=== PATIENT | male | born 1960 | race Caucasian/White ===

== ENCOUNTER 2021-07-28 06:27 | Observation (INO) | payer BC, OTHER ==
[2021-07-28] MEDS ORDERED: SODIUM CHLORIDE 0.9% 1,000 ML IV ONE ×2 (06:47→07:53)
--- NOTE | 2021-07-28 06:50 | ED ---
Chest Pain HPI - General Chief Complaint: Chest Pain Stated Complaint: Chest Pain Time Seen by Provider: 07/28/21 06:30 Source: patient, EMS, RN notes reviewed Mode of arrival: EMS Limitations: no limitations - History of Present Illness Initial Comments: This a 60-year-old male presents emergency Department with chief complaint of chest pain. Patient states that pain started a few hours ago has resolved at this time. Patient states he was more sharp pain in central to left-sided chest. Patient states that he is concerned and presented emergency from. Patient was offered nitro by EMS patient refused. Patient did receive aspirin. Patient has a history of hypertension no other cardiac issues. Patient denies any nausea vomiting diarrhea constipation no cough cold-like symptoms. - Related Data Allergies Allergy/AdvReac Type Severity Reaction Status Date / Time morphine AdvReac Vomiting Verified 07/28/21 06:50 Review of Systems ROS Statement: Those systems with pertinent positive or pertinent negative responses have been documented in the HPI. ROS Other: All systems not noted in ROS Statement are negative. Past Medical History History of Any Multi-Drug Resistant Organisms: None Reported Past Surgical History: Hernia Repair Additional Past Surgical History / Comment(s): cardiac cath 01/20 Smoking Status: Former smoker Past Alcohol Use History: Occasional Past Drug Use History: None Reported General Exam Limitations: no limitations General appearance: alert, in no apparent distress Head exam: Present: atraumatic, normocephalic, normal inspection Eye exam: Present: normal appearance, PERRL, EOMI. Absent: scleral icterus, conjunctival injection, periorbital swelling ENT exam: Present: normal exam, normal oropharynx, mucous membranes moist Neck exam: Present: normal inspection, full ROM. Absent: tenderness, meningismus, lymphadenopathy Respiratory exam: Present: normal lung sounds bilaterally. Absent: respiratory distress, wheezes, rales, rhonchi, stridor Cardiovascular Exam: Present: regular rate, normal rhythm, normal heart sounds. Absent: systolic murmur, diastolic murmur, rubs, gallop, clicks GI/Abdominal exam: Present: soft, normal bowel sounds. Absent: distended, tenderness, guarding, rebound, rigid Course Vital Signs 07/28/21 06:27 Temperature 97.9 F Pulse Rate 64 Respiratory 16 Rate Blood Pressure 89/59 O2 Sat by Pulse 92 L Oximetry Chest Pain MDM - MDM 60 male present emergency partner with chief complaint of chest pain patient is found to be acutely detoxicated with alcohol level 378 Patient's troponin is 0.017 patiently admitted for cardiac rule out. Disposition Clinical Impression: Chest pain, Alcohol intoxication Disposition: ADMITTED IP TO THIS HOSP Referrals: Nonstaff,Physician [REFERRING] - 1-2 days
[2021-07-28 07:12] LABS: Basophils # (A) 0.1 k/uL (0-0.2); Basophils % (A) 1 %; Eosinophils % (A) 1 %; HCT 51.5 % (39.0-53.0); HGB 16.8 gm/dL (13.0-17.5); Lymphocytes # (A) 1.5 k/uL (1.0-4.8); Lymphocytes % (A) 36 %; MCH 33.9 pg (25.0-35.0); MCHC 32.7 g/dL (31.0-37.0); MCV 103.7 fL (80.0-100.0); Macrocytosis Slight; Mean Platelet Volume 9.1; Monocytes # (A) 0.2 k/uL (0-1.0); Monocytes % (A) 5 %; Neutrophils # (A) 2.3 k/uL (1.3-7.7); Neutrophils % (A) 55 %; Platelet Count 167 k/uL (150-450); RBC 4.96 m/uL (4.30-5.90); RDW 13.5 % (11.5-15.5); WBC 4.1 k/uL (3.8-10.6)
[2021-07-28 07:28] LABS: ALT 126 U/L (4-49); AST 329 U/L (17-59); African American GFR (CKD) >90 (>60 ml/min/1.73 sqM); Albumin 4.3 g/dL (3.5-5.0); Alkaline Phosphatase 77 U/L (38-126); Anion Gap 21 mmol/L; Blood Urea Nitrogen 13 mg/dL (9-20); Calcium 8.8 mg/dL (8.4-10.2); Carbon Dioxide 18 mmol/L (22-30); Chloride 100 mmol/L (98-107); Glucose 76 mg/dL (74-99); Lipase 279 U/L (23-300); Magnesium 1.6 mg/dL (1.6-2.3); Non-African American GFR(CKD) 78 (>60 ml/min/1.73 sqM); Potassium 4.3 mmol/L (3.5-5.1); Sodium 139 mmol/L (137-145); Total Protein 6.9 g/dL (6.3-8.2)
[2021-07-28 07:32] LABS: Partial Thromboplastin Time 22.2 sec (22.0-30.0); Prothrombin Time 10.4 sec (9.0-12.0)
--- NOTE | 2021-07-28 07:35 | XR ---
EXAMINATION TYPE: XR chest 2V DATE OF EXAM: 07/28/2021 COMPARISON: NONE HISTORY: Shortness of breath TECHNIQUE: Frontal and lateral views of the chest are obtained. FINDINGS: Scattered senescent parenchymal changes noted. Hyperinflation compatible with COPD. No evidence for infiltrate. No evidence for atelectasis. Heart size is stable. Mediastinal structures are stable and grossly unremarkable. No evidence for hilar prominence. Degenerative changes dorsal spine. IMPRESSION: 1. No evidence for acute pulmonary disease.
[2021-07-28 07:43] LABS: Alcohol 378 mg/dL
[2021-07-28] MEDS ORDERED: NITROGLYCERIN SL TABS 0.4 MG TAB SUBLINGUAL PRN (08:13)
--- NOTE | 2021-07-28 09:48 | P.HPIM ---
History of Present Illness This is a pleasant [age]s old male with no significant past medical history. Presents because of chest pain He has remote history of necrotizing fasciitis of the left leg about 10 years ago as per patient Patient states that he came in because of chest pain that was severe so scared him to come to the hospital however the chest pain which is on the left side, nonradiating felt like sharp lasted for about 2-3 hours and currently his chest pain as a free compared to admission it was 7-8/10 in severity as per patient, he was lightheaded and sweating profusely, which is also resolved now as per patient. He denies dyspnea, no coughing. No abdominal pain or discomfort. No vomiting or diarrhea. Sometimes he feels some dysuria but currently his urine looks dark as per patient like he is dehydrated. He denies current dysuria or change in frequency. He denies headache or nausea. No dizziness. No weakness or numbness. No b lurred vision or slurred speech. Patient denies depression, no suicidal or homicidal ideation He denies smoking or illicit drugs. He states he drinks 3 beers every day and sometimes and liquor. However he was drinking too much over the weekend because of the [place]. In the emergency room patient received 2 L of normal saline and his blood pressure still 70s/40s Vital showing afebrile, heart rate 64, blood pressure 89/59, he is saturating 92% 2 L His CBC is unremarkable, INR is 1.0, BMP shows sodium 139, creatinine 1.0. Bilirubin is elevated at 2.0, AST 329, ALT 126 with AST more than ALT consistent with possible alcohol problem. Troponin 0.017. ProBNP is 23. Lipase normal at 279 Alcohol elevated at 378 In the emergency room. Started on aspirin 325 mg and normal saline Fleet Coordinator consulted Review of Systems CONSTITUTIONAL: No fever, no malaise, no fatigue. HEENT: No recent visual problems or hearing problems. Denied any sore throat. CARDIOVASCULAR: No orthopnea, PND, no palpitations, no syncope. PULMONARY: No shortness of breath, no cough, no hemoptysis. GASTROINTESTINAL: No diarrhea, no nausea, no vomiting, no abdominal pain. Normoactive bowel sounds. NEUROLOGICAL: No headaches, no weakness, no numbness. HEMATOLOGICAL: Denies any bleeding or petechiae. GENITOURINARY: Denies any burning micturition, frequency, or urgency. MUSCULOSKELETAL/RHEUMATOLOGICAL: Denies any joint pain, swelling, or any muscle pain. ENDOCRINE: Denies any polyuria or polydipsia. Past Medical History History of Any Multi-Drug Resistant Organisms: None Reported Past Surgical History: Hernia Repair Additional Past Surgical History / Comment(s): cardiac cath 01/20 Smoking Status: Former smoker Past Alcohol Use History: Occasional Past Drug Use History: None Reported Medications and Allergies Home Medications Medication Instructions Recorded Confirmed Type Escitalopram [Lexapro] 20 mg PO DAILY 07/28/21 07/28/21 History amLODIPine [Norvasc] 5 mg PO DAILY 07/28/21 07/28/21 History lisinopriL 40 mg PO DAILY 07/28/21 07/28/21 History Allergies Allergy/AdvReac Type Severity Reaction Status Date / Time morphine AdvReac Nausea & Verified 07/28/21 08:25 Vomiting Physical Exam Vitals: Vital Signs Temp Pulse Resp BP Pulse Ox 07/28/21 06:27 97.9 F 64 16 89/59 92 L Intake and Output 07/27/21 07/28/21 07/28/21 22:59 06:59 14:59 Other: Weight 104.326 kg GENERAL: The patient is alert and oriented x3, not in any acute distress. Well developed, well nourished. HEENT: Pupils are round and equally reacting to light. EOMI. No scleral icterus. No conjunctival pallor. Normocephalic, atraumatic. No pharyngeal erythema. No thyromegaly. CARDIOVASCULAR: S1 and S2 present. No murmurs, rubs, or gallops. PULMONARY: Chest is clear to auscultation, no wheezing or crackles. ABDOMEN: Soft, nontender, nondistended, normoactive bowel sounds. No palpable organomegaly. MUSCULOSKELETAL: No joint swelling or deformity. -EXTREMITIES: No cyanosis, clubbing, or pedal edema. Left leg is little warm and pinkish in color could be in view of his history of necrotizing fasciitis 10 years ago. NEUROLOGICAL: Gross neurological examination did not reveal any focal deficits. SKIN: No rashes. No petechiae Results CBC & Chem 7: 07/28/21 06:57 07/28/21 06:57 Labs: Abnormal Lab Results - Last 24 Hours (Table) 07/28/21 07/28/21 Range/Units 06:57 06:57 MCV 103.7 H (80.0-100.0) fL Carbon Dioxide 18 L (22-30) mmol/L Total Bilirubin 2.0 H (0.2-1.3) mg/dL AST 329 H (17-59) U/L ALT 126 H (4-49) U/L Serum Alcohol 378 H* mg/dL Assessment and Plan Assessment: Hypotension Chest pain, rule out cardiac causes. Currently is chest pain-free Alcohol intoxication at-risk of alcohol withdrawal Elevated liver enzymes and bilirubin, could be secondary to alcohol abuse. Rule out gallbladder disease mild redness of the left leg, not sure if this is acute or chronic Plan: This is a pleasant 60 his old male who presents with chest pain. Also alcohol abuse and elevated liver enzymes. Also mild redness of the left leg We'll do serial troponin, echocardiogram. Cardiology consult. Continue with aspirin. Gallbladder ultrasound, and monitor liver enzymes check Doppler of the lower extremity check d-dimer check lactic acid, repeat labs and monitor troponin check urine analysis and bladder scan Continue with CIWA protocol and thiamine. Patient is counseled to quit drinking alcohol and he agrees Labs and medication were reviewed.. Continue same treatment. Continue with symptomatic treatment. Resume home medication. Monitor lytes and vitals. DVT and GI prophylaxis. Further recommendations depends on the clinical course of the patient DVT prophylaxis: Subcutaneous heparin GI Prophylaxis: Pepcid PT/OT: Pending Prognosis is guarded
[2021-07-28] MEDS ORDERED: THIAMINE 100 MG in SODIUM CHLORIDE 0.9% 50 ML IVPB SCH (10:00)
[2021-07-28 10:14] LABS: Basophils % (A) 1 %; Eosinophils % (A) 1 %; HCT 50.8 % (39.0-53.0); HGB 16.3 gm/dL (13.0-17.5); Lymphocytes # (A) 0.9 k/uL (1.0-4.8); Lymphocytes % (A) 22 %; MCH 33.8 pg (25.0-35.0); MCHC 32.1 g/dL (31.0-37.0); MCV 105.2 fL (80.0-100.0); Macrocytosis Slight; Mean Platelet Volume 10.6; Monocytes # (A) 0.2 k/uL (0-1.0); Monocytes % (A) 4 %; Neutrophils % (A) 72 %; Platelet Count 157 k/uL (150-450); RBC 4.83 m/uL (4.30-5.90); RDW 13.5 % (11.5-15.5); WBC 4.2 k/uL (3.8-10.6)
--- NOTE | 2021-07-28 10:46 | US ---
EXAMINATION TYPE: US venous doppler duplex LE BI DATE OF EXAM: 07/28/2021 10:30 AM COMPARISON: NONE CLINICAL HISTORY: leg swelling. SIDE PERFORMED: Bilateral TECHNIQUE: The lower extremity deep venous system is examined utilizing real time linear array sonog gertrude with graded compression, doppler sonography and color-flow sonography. VESSELS IMAGED: Common Femoral Vein Deep Femoral Vein Greater Saphenous Vein * Femoral Vein Popliteal Vein Small Saphenous Vein * Proximal Calf Veins (* superficial vessels) Right Leg: Negative for DVT Left Leg: Negative for DVT IMPRESSION: No evidence for DVT.
--- NOTE | 2021-07-28 10:46 | US ---
EXAMINATION TYPE: US liver DATE OF EXAM: 07/28/2021 COMPARISON: NONE CLINICAL HISTORY: High bilirubin. EXAM MEASUREMENTS: Liver Length: 21.3 cm Gallbladder Wall: 0.1 cm CBD: 0.4 cm Right Kidney: 13.9x6.8x7.5 cm Pancreas: Not seen due to bowel Liver: Increased attenuation, decreased visualization of vessels suggestive of fatty infiltrate Gallbladder: Large amount of sludge Evidence for sonographic Encarnacion's sign: No CBD: wnl Right Kidney: Mid cyst 1.2x1.1x0.9cm IMPRESSION: #1 gallbladder sludge. 2. Hepatic steatosis.
[2021-07-28 11:04] LABS: ALT 126 U/L (4-49); AST 375 U/L (17-59); African American GFR (CKD) 78 (>60 ml/min/1.73 sqM); Albumin 4.3 g/dL (3.5-5.0); Albumin/Globulin Ratio 1.7; Alkaline Phosphatase 82 U/L (38-126); Anion Gap 21 mmol/L; Bilirubin,Unconjugated 0.9 mg/dL (0.0-1.1); Blood Urea Nitrogen 14 mg/dL (9-20); Calcium 8.5 mg/dL (8.4-10.2); Carbon Dioxide 17 mmol/L (22-30); Chloride 102 mmol/L (98-107); Globulin 2.6 g/dL; Glucose 76 mg/dL (74-99); Magnesium 1.6 mg/dL (1.6-2.3); Non-African American GFR(CKD) 68 (>60 ml/min/1.73 sqM); Potassium 4.6 mmol/L (3.5-5.1); Sodium 140 mmol/L (137-145); Total Protein 6.9 g/dL (6.3-8.2)
[2021-07-28 11:30] VITALS: RESP 18
[2021-07-28] MEDS ORDERED: LORazepam 2 MG/ML INJ IV PRN ×2 (12:29)
[2021-07-28] MEDS: SODIUM CHLORIDE 0.9% 1,000 ML IV SCH ×2 (12:45→16:52)
[2021-07-28] MEDS ORDERED: ALPRAZolam 0.5 MG TAB PO STA (12:47)
[2021-07-28] MEDS: THIAMINE 100 MG TAB PO SCH ×2 (13:03→17:58)
[2021-07-28] MEDS: HEPARIN SODIUM,PORCINE/PF 5,000 UNIT/0.5 ML SYRINGE SQ SCH ×2 (13:05→15:14)
[2021-07-28] MEDS ORDERED: bisacodyL 10 MG SUPP RECTAL STA (14:03)
[2021-07-28] MEDS ORDERED: DOCUSATE 100 MG CAP PO PRN (14:03)
[2021-07-28 14:53] LABS: Appearance,Urine Clear (Clear); Bacteria,Urine Rare /hpf; Bilirubin,Urine Negative (Negative); Blood,Urine Negative (Negative); Color,Urine Yellow; Glucose,Urine (UA) Negative (Negative); Hyaline Casts,Urine 12 /lpf (0-2); Ketones,Urine 2+ (Negative); Leukocyte Esterase,Urine Negative (Negative); Mucus,Urine Rare /hpf; Nitrite,Urine Negative (Negative); PH, Urine 5.5 (5.0-8.0); Protein,Urine 1+ (Negative); Specific Gravity,Urine 1.017 (1.001-1.035); Squamous Epithelial Cell,Urine <1 /hpf (0-4); WBC,Urine 5 /hpf (0-5)
[2021-07-28] MEDS ORDERED: SODIUM CHLORIDE 0.9% 500 ML 500 ML IV ONE ×2 (14:58→18:14)
--- NOTE | 2021-07-28 16:07 | P.CNPUL ---
History of Present Illness Consult date: 07/28/21 Requesting physician: Jose Maldonado Reason for consult: chest pain Chief complaint: Pleuritic chest pain History of present illness: This is 60-year-old white male patient with past medical history of hypertension, remote history of smoking, in remission for 30 some years, no history of chronic lung disease, previous history of hernia repair, came into the emergency department on 07/28/2021 with complaints of pleuritic chest pain that started a few hours prior to his presentation. It was sharp in nature, worse with movement and deep breathing. It resolved shortly after his arrival to the emergency department, patient states that was more central to left-sided. He had some mild diaphoresis. No shortness of breath. Has history of hypertension no other cardiac issues. He states a few years back he had a cardiac catheter was told the results were normal. He states over the holidays she overindulged in alcohol and probably had around 20 drinks over the last few days. Normally drinks 2 beers on a daily basis. He denies any recent trauma. No fever or chills. No recent illness. 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 He has been under a lot of stress. Chest x-ray in the emergency department showed no evidence for acute pulmonary disease. EKG showed normal sinus rhythm with evidence of inferior infarct of undetermined age. His initial blood work showed a white blood cell count of 4.1, hemoglobin of 16.8, INR of 1.0, sodium is 139, potassium is 4.3, chloride is 100, CO2 was 18, anion gap was 21, B1 is twitchy creatinine 1.05, lactic acid was elevated at 3.9, and subsequently did further increased to 5.8, magnesium level I.6, AST was 329, ALT was 126, alkaline phosphatase was 77, 3 sets of troponins were negative at 0.017, 0.012, and 0.015. His lipase was negative at 279, urinalysis showed 1+ protein, 2+ ketones, rare bacteria, no definite evidence of infection, serum alcohol level was elevated at 378, COVID-19 PCR was negative. Liver ultrasound has been completed showing gallbladder sludge, and hepatic steatosis. Lower extremity Dopplers were checked and were negative for DVT. Currently he is resting comfortably in bed, he was fluid resuscitated and was given a total of 2-1/2 L of fluid boluses, and he is receiving 0.9 normal saline at a rate of 1:30 ML per hour, he was started on CIWA protocol, he is breathing comfortably, he denies any chest pain. Her pulse ox is 94-95%, his lung sounds are clear Review of Systems All systems: negative Constitutional: Denies chills, Denies fever Eyes: denies blurred vision, denies pain Ears, nose, mouth and throat: Denies headache, Denies sore throat Cardiovascular: Reports chest pain, Reports edema, Denies shortness of breath Respiratory: Reports dyspnea, Denies cough Gastrointestinal: Denies abdominal pain, Denies diarrhea, Denies nausea, Denies vomiting Musculoskeletal: Denies myalgias Integumentary: Denies pruritus, Denies rash Neurological: Denies numbness, Denies weakness Psychiatric: Denies anxiety, Denies depression Endocrine: Denies fatigue, Denies weight change Past Medical History Past Medical History: Hypertension, Osteoarthritis (OA) Additional Past Medical History / Comment(s): Pt states bitten by brown recluse spider/necrotizing fascitis/ L lower leg/with extended hospitalization, benign colon polyps removed, arthritis bilateral knees/chronic bilateral knee pain. History of Any Multi-Drug Resistant Organisms: None Reported Past Surgical History: Hernia Repair Additional Past Surgical History / Comment(s): cardiac cath 01/20 Past Anesthesia/Blood Transfusion Reactions: No Reported Reaction Smoking Status: Former smoker Past Alcohol Use History: Occasional Past Drug Use History: None Reported - Past Family History Father Family Medical History: Cancer Additional Family Medical History / Comment(s): Father of colorectal cancer Brother(s) Family Medical History: Cancer Additional Family Medical History / Comment(s): Brother survived colorectal cancer. Mother Family Medical History: No Reported History Additional Family Medical History / Comment(s): Mother was healthy. Medications and Allergies Home Medications Medication Instructions Recorded Confirmed Type Escitalopram [Lexapro] 20 mg PO DAILY 07/28/21 07/28/21 History amLODIPine [Norvasc] 5 mg PO DAILY 07/28/21 07/28/21 History lisinopriL 40 mg PO DAILY 07/28/21 07/28/21 History Allergies Allergy/AdvReac Type Severity Reaction Status Date / Time morphine AdvReac Nausea & Verified 07/28/21 08:25 Vomiting Physical Exam Vitals: Vital Signs Temp Pulse Pulse Resp BP BP Pulse Ox 07/28/21 14:25 97.6 F 94 18 124/84 94 L 07/28/21 13:00 97.4 F L 82 18 93/56 95 07/28/21 11:29 77 18 106/66 97 07/28/21 09:27 97.3 F L 78 19 98/64 97 07/28/21 06:27 97.9 F 64 16 89/59 92 L Intake and Output 07/28/21 07/28/21 07/28/21 06:59 14:59 22:59 Intake Total 120 500 Balance 120 500 Intake: IV 500 Sodium Chloride 0.9% 500 500 ml 500 ml @ 999 mls/hr IV .Q31M ONE Rx#:[id number] Oral 120 Other: Voiding Method Toilet # Voids 1 1 # Bowel Movements 2 2 Weight 104.326 kg 104.326 kg GENERAL EXAM: Alert, very pleasant, 60-year-old white male, on room air with a pulse ox of 95%, comfortable in no apparent distress. HEAD: Normocephalic/atraumatic. EYES: Normal reaction of pupils, equal size. Conjunctiva pink, sclera white. NOSE: Clear with pink turbinates. THROAT: No erythema or exudates. NECK: No masses, no JVD, no thyroid enlargement, no adenopathy. CHEST: No chest wall deformity. Symmetrical expansion. LUNGS: Equal air entry with no crackles, wheeze, rhonchi or dullness. CVS: Regular rate and rhythm, normal S1 and S2, no gallops, no murmurs, no rubs ABDOMEN: Abdomen soft, nontender, obese. No hepatosplenomegaly, normal bowel sounds, no guarding or rigidity. EXTREMITIES: No clubbing, no edema, no cyanosis, 2+ pulses and upper and lower extremities. MUSCULOSKELETAL: Muscle strength and tone normal. SPINE: No scoliosis or deformity SKIN: No rashes CENTRAL NERVOUS SYSTEM: Alert and oriented -3. No focal deficits, tone is normal in all 4 extremities. PSYCHIATRIC: Alert and oriented -3. Appropriate affect. Intact judgment and insight. Results - Laboratory Findings CBC and BMP: 07/28/21 09:54 07/28/21 10:41 PT/INR, D-dimer PT 10.4 sec (9.0-12.0) 07/28/21 06:57 INR 1.0 (<1.2) 07/28/21 06:57 Abnormal lab findings: Abnormal Labs 07/28/21 07/28/21 07/28/21 06:57 06:57 09:54 MCV 103.7 H 105.2 H Lymphocytes # 0.9 L Carbon Dioxide 18 L Plasma Lactic Acid Lenin Total Bilirubin 2.0 H AST 329 H ALT 126 H Urine Protein Urine Ketones Urine Bacteria Hyaline Casts Urine Mucus Serum Alcohol 378 H* 07/28/21 07/28/21 07/28/21 09:54 10:41 12:50 MCV Lymphocytes # Carbon Dioxide 17 L Plasma Lactic Acid Lenin 3.9 H* 5.8 H* Total Bilirubin 2.0 H AST 375 H ALT 126 H Urine Protein Urine Ketones Urine Bacteria Hyaline Casts Urine Mucus Serum Alcohol 07/28/21 14:17 MCV Lymphocytes # Carbon Dioxide Plasma Lactic Acid Lenin Total Bilirubin AST ALT Urine Protein 1+ H Urine Ketones 2+ H Urine Bacteria Rare H Hyaline Casts 12 H Urine Mucus Rare H Serum Alcohol - Diagnostic Findings Chest x-ray: report reviewed, image reviewed Additional studies: Liver ultrasound, venous Doppler studies, EKG reviewed Assessment and Plan Plan: Assessment: #1. Pleuritic chest pain, rule out possibility of underlying pulmonary embolism, CT angiogram of the chest has been ordered and pending. Lower extremity Dopplers were negative for DVT. 3 sets of troponins were negative #2. Acute alcohol intoxication on presentation, and alcohol level was 378 #3. Daily alcohol use #4. Lactic acidosis, possibly related to dehydration, rule out possibility of patient has been fluid resuscitated and remains on 0.9 at a rate of 130 ML per hour #5. Anion gap metabolic acidosis, related to lactic acidosis, and alcoholic starvation ketosis #6. Gallbladder sludge and hepatic steatosis #7. Hypertension #8. Remote history of smoking Plan: We will obtain CT angiogram of the chest to rule out possibility of PE Continue IV hydration Continue CIWA protocol, thiamine replacement GI and DVT prophylaxis Maintaining safety precautions We'll continue to follow Patient is breathing comfortably, Vital signs are stable Chest pain has resolved Lower extremity dopplers reviewed showing no DVT Will review results of the CTA chest, and make further recommendations I performed a history & physical examination of the patient and discussed their management with my nurse practitioner, Yolanda Perkins. I reviewed the nurse practitioner's note and agree with the documented findings and plan of care. Lung sounds are positive for diminished breath sounds throughout the lung rudolph. The findings and the impression was discussed with the patient. I attest to the documentation by the nurse practitioner. Time with Patient: Greater than 30
[2021-07-28] MEDS: LORazepam 2 MG/ML INJ IV PRN ×2 (18:12→21:48)
[2021-07-28] MEDS: FAMOTIDINE 20 MG/2 ML VIAL IV SCH (21:06)
[2021-07-29] MEDS: HEPARIN SODIUM,PORCINE/PF 5,000 UNIT/0.5 ML SYRINGE SQ SCH ×2 (01:06→09:52)
[2021-07-29] MEDS: SODIUM CHLORIDE 0.9% 1,000 ML IV SCH ×2 (05:51→14:04)
[2021-07-29 08:00] VITALS: BP 116/66; PULSE 78; TEMP 99.3
--- NOTE | 2021-07-29 08:56 | P.GSCN ---
History of Present Illness Consult date: 07/28/21 History of present illness: CHIEF COMPLAINT: Abnormal ultrasound HISTORY OF PRESENT ILLNESS: The patient is a 60 year old male who presented with acute alcohol intoxication as well as chest pain. He presented with elevated lactic acid level and elevated alcohol level. He was evaluated for chest pain. Ultrasound was also obtained for elevated liver enzymes. Due to findings on ultrasound, general surgery is consulted for gallbladder sludge. PAST MEDICAL HISTORY: See list and reviewed PAST SURGICAL HISTORY: See list and reviewed MEDICATIONS: See list and reviewed ALLERGIES: See list and reviewed SOCIAL HISTORY: See list and reviewed FAMILY HISTORY: See list and reviewed REVIEW OF ORGAN SYSTEMS: CONSTITUTIONAL: No fevers or chills. No recent weight loss. EYES: Denies any trouble with vision. No glasses. HEENT: No difficulties with hearing. No nosebleeds. No difficulty swallowing. RESPIRATORY: Denies pneumonia. Denies any troubles with breathing or dyspnea on exertion. CARDIOVASCULAR: Has chest pain, palpitations, or recent heart attacks. GASTROINTESTINAL: Denies fatty food intolerance. Denies change in bowel habits and gas bloat. GENITOURINARY: Denies any blood in urine or increased urinary frequency. NEUROLOGICAL: Denies any numbness or tingling along the distal extremities. No seizure disorders or headaches. MUSCULOSKELETAL: Denies any back pain, stiffness or joint arthritis. SKIN: No current skin cancer. No rash. PSYCHIATRIC: Denies current depression or suicidal thoughts. ENDOCRINE: Denies current thyroid disorders. Denies any blood sugar glucose intolerance. HEME/LYMPHATIC: Denies any lumps and bumps around the neck. No recent deep venous thrombosis. ALLERGY/IMMUNOLOGY: No immunoglobulin therapy. No immune deficiencies. BREAST: Denies current breast lumps, pain or nipple discharge. PHYSICAL EXAM: VITALS: Reviewed CONSTITUTIONAL: Well developed and in no acute distress. EYES: Conjuctivae without sclera icterus. Extraocular movements grossly intact. HEAD, EARS, NOSE, THROAT: Moist buccal mucosa. Head is atraumatic, normocephalic. Hears conversational speech. No nasal drainage. NECK: Supple. No JV distention. No thyroidomegaly. RESPIRATORY: Non-labored respirations and equal bilateral excursions. No gross wheezes. CARDIOVASCULAR: 2+ radial pulses. ABDOMEN: Nontender. Nondistended. LYMPH: No neck lymphadenopathy. MUSCULOSKELETAL: Nail and fingers with good capillary refill. SKIN: Warm and well perfused with good skin turgor. NEUROLOGIC: Cranial nerves II through XII grossly intact. No focal or lateralizing signs. PSYCH: Appropriate affect. Alert and oriented to person, place and time. Displays appropriate insight. CLINCAL LABS: Reviewed. LFTs elevated IMAGING: Independently reviewed. RADIOLOGY: Report reviewed ASSESSMENT: 1. Abnormal ultrasound with gallbladder sludge 2. Alcoholism PLAN: 1. Recommend IV fluid hydration. Denies any abdominal pain. 2. No acute surgical intervention at this time with acute alcoholism. ADVANCE DIRECTIVE: Thank you for this kind consultation. Past Medical History Past Medical History: Hypertension, Osteoarthritis (OA) Additional Past Medical History / Comment(s): Pt states bitten by brown recluse spider/necrotizing fascitis/ L lower leg/with extended hospitalization, benign colon polyps removed, arthritis bilateral knees/chronic bilateral knee pain. History of Any Multi-Drug Resistant Organisms: None Reported Past Surgical History: Hernia Repair Additional Past Surgical History / Comment(s): cardiac cath 01/20 Past Anesthesia/Blood Transfusion Reactions: No Reported Reaction Smoking Status: Former smoker Past Alcohol Use History: Occasional Past Drug Use History: None Reported - Past Family History Father Family Medical History: Cancer Additional Family Medical History / Comment(s): Father of colorectal cancer Brother(s) Family Medical History: Cancer Additional Family Medical History / Comment(s): Brother survived colorectal cancer. Mother Family Medical History: No Reported History Additional Family Medical History / Comment(s): Mother was healthy. Medications and Allergies Home Medications Medication Instructions Recorded Confirmed Type Escitalopram [Lexapro] 20 mg PO DAILY 07/28/21 07/28/21 History amLODIPine [Norvasc] 5 mg PO DAILY 07/28/21 07/28/21 History lisinopriL 40 mg PO DAILY 07/28/21 07/28/21 History Allergies Allergy/AdvReac Type Severity Reaction Status Date / Time morphine AdvReac Nausea & Verified 07/28/21 08:25 Vomiting Surgical - Exam Vital Signs Temp Pulse Resp BP Pulse Ox 97.9 F 64 16 89/59 92 L 07/28/21 06:27 07/28/21 06:27 07/28/21 06:27 07/28/21 06:27 07/28/21 06:27 Results - Labs 07/28/21 09:54 07/28/21 10:41 Abnormal Lab Results - Last 24 Hours (Table) 07/28/21 07/28/21 07/28/21 Range/Units 06:57 06:57 09:54 MCV 103.7 H 105.2 H (80.0-100.0) fL Lymphocytes # 0.9 L (1.0-4.8) k/uL Carbon Dioxide 18 L (22-30) mmol/L Plasma Lactic Acid Lenin (0.7-2.0) mmol/L Total Bilirubin 2.0 H (0.2-1.3) mg/dL AST 329 H (17-59) U/L ALT 126 H (4-49) U/L Procalcitonin (0.02-0.09) ng/mL Urine Protein (Negative) Urine Ketones (Negative) Urine Bacteria (None) /hpf Hyaline Casts (0-2) /lpf Urine Mucus (None) /hpf Serum Alcohol 378 H* mg/dL 07/28/21 07/28/21 07/28/21 Range/Units 09:54 10:41 10:41 MCV (80.0-100.0) fL Lymphocytes # (1.0-4.8) k/uL Carbon Dioxide 17 L (22-30) mmol/L Plasma Lactic Acid Lenin 3.9 H* (0.7-2.0) mmol/L Total Bilirubin 2.0 H (0.2-1.3) mg/dL AST 375 H (17-59) U/L ALT 126 H (4-49) U/L Procalcitonin 0.13 H (0.02-0.09) ng/mL Urine Protein (Negative) Urine Ketones (Negative) Urine Bacteria (None) /hpf Hyaline Casts (0-2) /lpf Urine Mucus (None) /hpf Serum Alcohol mg/dL 07/28/21 07/28/21 07/28/21 Range/Units 12:50 14:17 16:06 MCV (80.0-100.0) fL Lymphocytes # (1.0-4.8) k/uL Carbon Dioxide (22-30) mmol/L Plasma Lactic Acid Lenin 5.8 H* 5.6 H* (0.7-2.0) mmol/L Total Bilirubin (0.2-1.3) mg/dL AST (17-59) U/L ALT (4-49) U/L Procalcitonin (0.02-0.09) ng/mL Urine Protein 1+ H (Negative) Urine Ketones 2+ H (Negative) Urine Bacteria Rare H (None) /hpf Hyaline Casts 12 H (0-2) /lpf Urine Mucus Rare H (None) /hpf Serum Alcohol mg/dL 07/28/21 Range/Units 19:08 MCV (80.0-100.0) fL Lymphocytes # (1.0-4.8) k/uL Carbon Dioxide (22-30) mmol/L Plasma Lactic Acid Lenin 3.5 H* (0.7-2.0) mmol/L Total Bilirubin (0.2-1.3) mg/dL AST (17-59) U/L ALT (4-49) U/L Procalcitonin (0.02-0.09) ng/mL Urine Protein (Negative) Urine Ketones (Negative) Urine Bacteria (None) /hpf Hyaline Casts (0-2) /lpf Urine Mucus (None) /hpf Serum Alcohol mg/dL Diabetes panel 07/28/21 07/28/21 Range/Units 06:57 10:41 Sodium 139 140 (137-145) mmol/L Potassium 4.3 4.6 (3.5-5.1) mmol/L Chloride 100 102 (98-107) mmol/L Carbon Dioxide 18 L 17 L (22-30) mmol/L BUN 13 14 (9-20) mg/dL Creatinine 1.05 1.17 (0.66-1.25) mg/dL Glucose 76 76 (74-99) mg/dL Calcium 8.8 8.5 (8.4-10.2) mg/dL AST 329 H 375 H (17-59) U/L ALT 126 H 126 H (4-49) U/L Alkaline Phosphatase 77 82 (38-126) U/L Total Protein 6.9 6.9 (6.3-8.2) g/dL Albumin 4.3 4.3 (3.5-5.0) g/dL Calcium panel 07/28/21 07/28/21 Range/Units 06:57 10:41 Calcium 8.8 8.5 (8.4-10.2) mg/dL Albumin 4.3 4.3 (3.5-5.0) g/dL Pituitary panel 07/28/21 07/28/21 Range/Units 06:57 10:41 Sodium 139 140 (137-145) mmol/L Potassium 4.3 4.6 (3.5-5.1) mmol/L Chloride 100 102 (98-107) mmol/L Carbon Dioxide 18 L 17 L (22-30) mmol/L BUN 13 14 (9-20) mg/dL Creatinine 1.05 1.17 (0.66-1.25) mg/dL Glucose 76 76 (74-99) mg/dL Calcium 8.8 8.5 (8.4-10.2) mg/dL Adrenal panel 07/28/21 07/28/21 Range/Units 06:57 10:41 Sodium 139 140 (137-145) mmol/L Potassium 4.3 4.6 (3.5-5.1) mmol/L Chloride 100 102 (98-107) mmol/L Carbon Dioxide 18 L 17 L (22-30) mmol/L BUN 13 14 (9-20) mg/dL Creatinine 1.05 1.17 (0.66-1.25) mg/dL Glucose 76 76 (74-99) mg/dL Calcium 8.8 8.5 (8.4-10.2) mg/dL Total Bilirubin 2.0 H 2.0 H (0.2-1.3) mg/dL AST 329 H 375 H (17-59) U/L ALT 126 H 126 H (4-49) U/L Alkaline Phosphatase 77 82 (38-126) U/L Total Protein 6.9 6.9 (6.3-8.2) g/dL Albumin 4.3 4.3 (3.5-5.0) g/dL
[2021-07-29] MEDS ORDERED: ASPIRIN 325 MG TAB PO SCH (09:00)
[2021-07-29] MEDS ORDERED: LORazepam 2 MG/ML INJ IV STA (09:50)
[2021-07-29] MEDS: THIAMINE 100 MG TAB PO SCH (09:52)
[2021-07-29] MEDS: FAMOTIDINE 20 MG/2 ML VIAL IV SCH (09:52)
[2021-07-29 10:44] LABS: Basophils % (A) 1 %; Eosinophils % (A) 1 %; HCT 43.2 % (39.0-53.0); HGB 13.8 gm/dL (13.0-17.5); Lymphocytes # (A) 0.9 k/uL (1.0-4.8); Lymphocytes % (A) 30 %; MCH 33.1 pg (25.0-35.0); MCHC 32.1 g/dL (31.0-37.0); MCV 103.2 fL (80.0-100.0); Macrocytosis Slight; Mean Platelet Volume 10.6; Monocytes # (A) 0.2 k/uL (0-1.0); Monocytes % (A) 6 %; Neutrophils # (A) 1.8 k/uL (1.3-7.7); Neutrophils % (A) 61 %; Platelet Count 129 k/uL (150-450); RBC 4.18 m/uL (4.30-5.90); RDW 13.4 % (11.5-15.5)
[2021-07-29 10:49] LABS: ALT 110 U/L (4-49); AST 268 U/L (17-59); African American GFR (CKD) >90 (>60 ml/min/1.73 sqM); Albumin 3.3 g/dL (3.5-5.0); Albumin/Globulin Ratio 1.5; Alkaline Phosphatase 60 U/L (38-126); Anion Gap 8 mmol/L; Blood Urea Nitrogen 14 mg/dL (9-20); Carbon Dioxide 23 mmol/L (22-30); Chloride 102 mmol/L (98-107); Globulin 2.2 g/dL; Glucose 107 mg/dL (74-99); Non-African American GFR(CKD) >90 (>60 ml/min/1.73 sqM); Potassium 3.9 mmol/L (3.5-5.1); Sodium 133 mmol/L (137-145); Total Bilirubin 1.8 mg/dL (0.2-1.3); Total Protein 5.5 g/dL (6.3-8.2)
[2021-07-29 11:00] LABS: Chol/HDL Ratio 2.15 Ratio; VLDL Calculation 12.38 mg/dL (5.00-40.00)
--- NOTE | 2021-07-29 11:14 | CT ---
EXAMINATION TYPE: CT chest angio for PE DATE OF EXAM: 07/29/2021 COMPARISON: None HISTORY: Elevated d-dimer CONTRAST: CT chest with contrast and 3D reconstruction with MIP imaging is performed with IV Contrast, patient injected with 100 mL of Isovue 300. Contrast-enhanced CT of the chest was performed through the course of the pulmonary arteries with isis g and mediastinal window settings submitted. 3D reconstruction with MIP imaging was also performed. PULMONARY ARTERIES: The pulmonary arteries and their major tributaries are patent. I do not see palmira dence for sizable filling defect to suggest pulmonary embolic process. LUNGS: The lungs are clear and free of infiltrate. No evidence for atelectasis. No pulmonary nodule or mass is detected. No pleural effusion. MEDIASTINUM: Ascending thoracic aortic aneurysm measuring 4.5 cm in AP dimension. The heart is mildly enlarged. No evidence for mediastinal mass. No mediastinal lymph nodes greater than 1cm. Incidenta l nonspecific right-sided Thyroid nodules. HILAR STRUCTURES: No evidence for mass. No hilar lymph nodes greater than 1 cm. UPPER ABDOMEN: Hepatic steatosis IMPRESSION: 1. No evidence for Pulmonary embolism at this time.
--- NOTE | 2021-07-29 12:00 | CONS ---
CONSULTATION Bahman Haley is a 60-year-old obese gentleman with history of hypertension, hypercholesterolemia, alcoholism. He also has some anxiety disorder as well. This gentleman is under a lot of stress and apparently his is not doing well. She is being considered for hospice and he has a lot of issues. He drank alcohol excessively, came in intoxicated with alcohol level of about 378 yesterday. However, this morning he is more sober, resting comfortably. His electrolytes have been normal. His lactic acid level also has improved. He has no chest pain or shortness of breath. Yesterday he complained of some chest tightness and pressure, but this has resolved. He also has an elevated D-dimer of 2.17. However, the venous Doppler that was performed yesterday did not reveal any evidence of DVT. He is resting comfortably without symptoms. About 3 months ago he had a cardiac cath through the [facility] and this was unremarkable with no evidence of obstructive CAD, per patient. PAST MEDICAL HISTORY: 1. Hypertension. 2. Hyperlipidemia. 3. Past history of smoking. 4. History of unremarkable cardiac cath 3 months ago per patient. MEDICATIONS: Medications at home include amlodipine, lisinopril, multivitamins and Lexapro 20 mg daily. ALLERGIES: MORPHINE. PHYSICAL EXAMINATION: On examination, blood pressure is 118/70, pulse rate 78 per minute, regular. HEENT unremarkable. Fundus was not examined by me. Neck is supple. No JVD. I do not hear a carotid bruit. There is no thyromegaly. Heart exam reveals S1, S2, but heart sounds are heard distantly. There is a short systolic murmur at the left sternal border. Lungs reveal decent air entry. Abdomen is soft, nontender, distended. Lower extremities reveal diminished pulses, trace edema. Central nervous system is normal. IMPRESSION: 1. Atypical chest pain. 2. Abnormal D-dimer. 3. Obesity. 4. Hypertension. 5. Hyperlipidemia. 6. History of alcoholism. He came in intoxicated, but this has resolved. RECOMMENDATIONS: Given the elevated D-dimer, I am recommending that we will continue his hydration and proceed with a CT angiogram to rule out any pulmonary embolism. DVT, however, was negative. His blood pressure control seems to be optimal. 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 I have discussed my thoughts in detail with the patient. We will perform a CT angiogram, and if this is normal he can be discharged. Thank you very much for the consult. TOM / KURT: [id number] /
--- NOTE | 2021-07-29 14:56 | HP ---
HISTORY AND PHYSICAL COMBINED HISTORY AND PHYSICAL AND DISCHARGE SUMMARY: DATE OF SERVICE: 07/29/2021 CHIEF COMPLAINT: Chest pain. HISTORY OF PRESENT ILLNESS: This 60-year-old gentleman with a past medical history of hypertension, history of DJD, history of hernia repair, history of recent cardiac cath which was negative, anxiety, history of EtOH, being followed by Dr. Gonzalez in the outpatient setting, was admitted with acute alcohol intoxication as well as chest pain. The pain was in the middle of the chest. The patient was evaluated by Cardiology. The troponins are negative. D- dimer was elevated. CT angio chest was also negative and the patient is being discharged per Cardiology. There is no history of any fever, rigors or chills. No history of headache, loss of consciousness, seizures at this time. LFTs are elevated, indicating acute alcoholic hepatitis. Otherwise, procalcitonin is 0.13 and COVID-19 was negative. Alcohol was 378 on admission. PAST MEDICAL HISTORY: History of DJD, history of hypertension, history of hernia repair. MEDICATIONS PRIOR TO ADMISSION: None. ALLERGIES: MORPHINE. FAMILY HISTORY: History of colorectal cancer in the family. SOCIAL HISTORY: Previous history of smoking. History of alcohol intake occasionally, according to him. 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 REVIEW OF SYSTEMS: ENT: No diminished hearing. No diminished vision. CARDIOVASCULAR SYSTEM: As mentioned earlier. RESPIRATORY SYSTEM: As mentioned earlier. GI: No nausea, vomiting, diarrhea. : No dysuria. NERVOUS SYSTEM: No numbness, weakness. ALLERGY/IMMUNOLOGY: No asthma or hay fever. MUSCULOSKELETAL: As mentioned earlier. HEMATOLOGY/ONCOLOGY: No history of anemia. ENDOCRINE: No history of diabetes or hypothyroidism. CONSTITUTIONAL: As mentioned earlier. DERMATOLOGY: Negative. RHEUMATOLOGY: Negative. PSYCHIATRY: As mentioned earlier. PHYSICAL EXAMINATION: Patient alert and oriented x3. Pulse 78, blood pressure 116/66, respiration 18, temperature 99.3, pulse ox 93% on room air. HEENT: Conjunctivae normal. NECK: No jugular venous distention. CARDIOVASCULAR: S1, S2 muffled. RESPIRATION: Breath sounds diminished at the bases. No rhonchi. No crackles. ABDOMEN: Soft, nontender. No mass palpable. LEGS: No edema. No swelling. NERVOUS SYSTEM: Higher functions as mentioned earlier. Moves all 4 limbs. No focal motor or sensory deficit. LYMPHATICS: No lymph node palpable in neck, axillae or groin. SKIN: No ulcer, rash, bleeding. JOINTS: No active deforming arthropathy. LABS: WBC 3, hemoglobin 13.8, MCV is 103.2. D-dimer is 2.17. Sodium 133 and lactic acid 1.2. ASSESSMENT: 1. Acute alcohol intoxication, present on admission. 2. Chest pain, possibly musculoskeletal, nonspecific. 3. History of recent negative cardiac catheterization. 4. Elevated D-dimer, probably secondary to dehydration without any evidence of pulmonary embolism. 5. Elevated bilirubin, AST, ALT; alcoholic hepatitis. 6. History of degenerative joint disease. 7. History of hernia repair. 8. Hypertension. 9. History of anxiety. 10.History of nicotine dependence. 11.Obesity with body mass index of 31.2. RECOMMENDATIONS AND DISCUSSION: In this 60-year-old gentleman admitted with multiple medical issues is medically cleared. Cardiology saw the patient and patient is asymptomatic at this time. The patient is being discharged home with the following advice and medications. CT angio was negative, as mentioned earlier. 1. Lexapro 20 mg daily. 2. Lisinopril 40 mg daily. 3. Norvasc 5 mg daily. 4. Folic acid 1 mg daily. 5. Librium 25 mg t.i.d. p.r.n. 6. Multivitamins 1 p.o. daily. 7. Thiamine 100 mg p.o. daily. 8. To attend AA meetings as well as other alcohol rehab. MMODL / IJN: [id number] /
== END 2021-07-29 14:30 | disposition home or self-care (01) ==
LOC: EC 06:27 → 6NMEDSUR 08:53
PROVIDERS: ADMIT Internal Medicine; ATTEND Internal Medicine
DX: F10.229 Alcohol dependence with intoxication, unspecified (principal); Y90.8 Blood alcohol level of 240 mg/100 ml or more; R07.89 Other chest pain; R07.81 Pleurodynia; R61 Generalized hyperhidrosis; R42 Dizziness and giddiness; R79.89 Other specified abnormal findings of blood chemistry; I10 Essential (primary) hypertension; K76.0 Fatty (change of) liver, not elsewhere classified; I95.9 Hypotension, unspecified; E87.2 Acidosis; E86.0 Dehydration; E78.00 Pure hypercholesterolemia, unspecified; E78.5 Hyperlipidemia, unspecified; K82.8 Other specified diseases of gallbladder; K70.10 Alcoholic hepatitis without ascites; M17.0 Bilateral primary osteoarthritis of knee; F41.9 Anxiety disorder, unspecified; E66.9 Obesity, unspecified; Z68.31 Body mass index [BMI] 31.0-31.9, adult; Z20.822 Contact with and (suspected) exposure to COVID-19; Z71.41 Alcohol abuse counseling and surveillance of alcoholic; Z87.891 Personal history of nicotine dependence; Z86.010 Personal history of colon polyps; Z87.39 Personal history of other diseases of the musculoskeletal system and connective tissue; Z79.899 Other long term (current) drug therapy; Z63.79 Other stressful life events affecting family and household; Z88.5 Allergy status to narcotic agent; Z80.0 Family history of malignant neoplasm of digestive organs
CPT/HCPCS: 96376 ×2; 96361 ×2; 96372 ×2; 96374; 96375; 99285; 36415; 93005; 85379; 83880; 80061; 80053 ×2; 80048; 80076; 83605 ×2; 83690; 83735; 84484; 85025 ×2; 85610; 85730; 81001; 80320; 84145; 87635; 71046; 76705; 93970; 71275; G0378 ×2; J2060 ×2; Q9967; J1644 ×2

== ENCOUNTER 2021-09-19 00:55 | Observation (INO) | payer BC ==
[2021-09-19] MEDS ORDERED: SODIUM CHLORIDE 0.9% 1,000 ML IV ONE (01:15)
[2021-09-19] MEDS ORDERED: HYDROmorphone 0.5 MG/0.5 ML SYRINGE IVP STA (01:15)
--- NOTE | 2021-09-19 01:37 | ED ---
Fall HPI - General Chief Complaint: Fall Stated Complaint: ETOH Time Seen by Provider: 09/19/21 01:06 Source: patient, EMS, RN notes reviewed, old records reviewed Mode of arrival: EMS Limitations: no limitations - History of Present Illness Initial Comments: This is a 60-year-old male to the emergency department for evaluation. Patient has history of recent multiple falls that started with a fall around half a week ago. 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 Patient presents to the emergency department and was to be the and he went home. Patient has since had multiple other recent falls due to leg weakness and currently complains of back pain. Patient also admits to incontinence. Patient states is incontinent of both stool and urine. 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 falls (Multiple falls since recent initial fall) Fall Witnessed: no Place Fall Occurred: home Loss of Consciousness: none Prolonged Down Time?: no Symptoms Prior to Fall: none Location: head, back Severity: severe Severity scale (1-10): 8 Quality: sharp, aching Context: tripped/slipped Associated Symptoms: denies, headache, neck pain, numbness, weakness - Related Data Home Medications Medication Instructions Recorded Confirmed Escitalopram [Lexapro] 20 mg PO DAILY 07/28/21 07/28/21 amLODIPine [Norvasc] 5 mg PO DAILY 07/28/21 07/28/21 lisinopriL 40 mg PO DAILY 07/28/21 07/28/21 Previous Rx's Medication Instructions Recorded Folic Acid 1 mg PO DAILY #30 tablet 07/29/21 Multivitamins, Thera [Multivitamin] 1 tab PO DAILY #30 tablet 07/29/21 Thiamine [Vitamin B-1] 100 mg PO DAILY #30 tablet 07/29/21 chlordiazePOXIDE HCl [Librium] 25 mg PO TID 3 Days #9 capsule 07/29/21 Allergies Allergy/AdvReac Type Severity Reaction Status Date / Time morphine AdvReac Nausea & Verified 07/28/21 08:25 Vomiting Review of Systems ROS Statement: Those systems with pertinent positive or pertinent negative responses have been documented in the HPI. ROS Other: All systems not noted in ROS Statement are negative. Past Medical History Past Medical History: Hypertension, Osteoarthritis (OA) Additional Past Medical History / Comment(s): Pt states bitten by brown recluse spider/necrotizing fascitis/ L lower leg/with extended hospitalization, benign colon polyps removed, arthritis bilateral knees/chronic bilateral knee pain. History of Any Multi-Drug Resistant Organisms: None Reported Past Surgical History: Hernia Repair Additional Past Surgical History / Comment(s): cardiac cath 01/20 Past Anesthesia/Blood Transfusion Reactions: No Reported Reaction Past Psychological History: Anxiety Smoking Status: Former smoker Past Alcohol Use History: Occasional Past Drug Use History: None Reported - Past Family History Father Family Medical History: Cancer Additional Family Medical History / Comment(s): Father of colorectal cancer Brother(s) Family Medical History: Cancer Additional Family Medical History / Comment(s): Brother survived colorectal cancer. Mother Family Medical History: No Reported History Additional Family Medical History / Comment(s): Mother was healthy. General Exam General appearance: alert, in no apparent distress Head exam: Present: atraumatic, normocephalic, normal inspection Eye exam: Present: normal appearance, PERRL, EOMI. Absent: scleral icterus, conjunctival injection, periorbital swelling ENT exam: Present: normal exam, mucous membranes moist Neck exam: Present: normal inspection. Absent: tenderness, meningismus, lymphadenopathy Respiratory exam: Present: normal lung sounds bilaterally. Absent: respiratory distress, wheezes, rales, rhonchi, stridor Cardiovascular Exam: Present: regular rate, normal rhythm, normal heart sounds. Absent: systolic murmur, diastolic murmur, rubs, gallop, clicks GI/Abdominal exam: Present: soft, normal bowel sounds. Absent: distended, tenderness, guarding, rebound, rigid Extremities exam: Present: normal inspection, full ROM, normal capillary refill. Absent: tenderness, pedal edema, joint swelling, calf tenderness Back exam: Present: normal inspection Neurological exam: Present: alert, oriented X3, CN II-XII intact Psychiatric exam: Present: normal affect, normal mood Skin exam: Present: warm, dry, intact, normal color. Absent: rash Course Vital Signs 09/19/21 09/19/21 01:02 02:44 Temperature 98.0 F Pulse Rate 92 79 Respiratory 18 18 Rate Blood Pressure 150/100 148/103 O2 Sat by Pulse 92 L 96 Oximetry - Reevaluation(s) Reevaluation #1: 09/19/21 02:00 Medical record is reviewed Reevaluation #2: 09/19/21 03:04 Patient is informed of results and questions have been answered Reevaluation #3: 09/19/21 03:05 Patient's pain is well-controlled currently controlled. - Consultations Consultation #1: Spoke with sound physicians will admit this patient Medical Decision Making - Medical Decision Making 60 male DF for evaluation of fall with back Pain patient does have back pain here in the ER states is very weak and unable to walk. Patient will be admitted for on-call intoxication monitoring of back pain and inability to ambulate - Lab Data Result diagrams: 09/19/21 01:26 09/19/21 01:26 Lab Results 09/19/21 09/19/21 Range/Units 01:26 01:26 WBC 3.0 L (3.8-10.6) k/uL RBC 4.40 (4.30-5.90) m/uL Hgb 15.3 (13.0-17.5) gm/dL Hct 45.5 (39.0-53.0) % MCV 103.3 H (80.0-100.0) fL MCH 34.7 (25.0-35.0) pg MCHC 33.6 (31.0-37.0) g/dL RDW 15.3 (11.5-15.5) % Plt Count 117 L (150-450) k/uL MPV 9.1 Neutrophils % 29 % Lymphocytes % 59 % Monocytes % 5 % Eosinophils % 2 % Basophils % 3 % Neutrophils # 0.9 L (1.3-7.7) k/uL Lymphocytes # 1.8 (1.0-4.8) k/uL Monocytes # 0.2 (0-1.0) k/uL Eosinophils # 0.1 (0-0.7) k/uL Basophils # 0.1 (0-0.2) k/uL Macrocytosis Slight Sodium 140 (137-145) mmol/L Potassium 3.8 (3.5-5.1) mmol/L Chloride 101 (98-107) mmol/L Carbon Dioxide 24 (22-30) mmol/L Anion Gap 15 mmol/L BUN 9 (9-20) mg/dL Creatinine 0.58 L (0.66-1.25) mg/dL Est GFR (CKD-EPI)AfAm >90 (>60 ml/min/1.73 sqM) Est GFR (CKD-EPI)NonAf >90 (>60 ml/min/1.73 sqM) Glucose 106 H (74-99) mg/dL Calcium 9.3 (8.4-10.2) mg/dL Phosphorus 4.5 (2.5-4.5) mg/dL Magnesium 1.4 L (1.6-2.3) mg/dL Total Bilirubin 0.9 (0.2-1.3) mg/dL AST 221 H (17-59) U/L ALT 80 H (4-49) U/L Alkaline Phosphatase 66 (38-126) U/L Total Protein 6.6 (6.3-8.2) g/dL Albumin 4.1 (3.5-5.0) g/dL Serum Alcohol 322 H* mg/dL - Radiology Data Radiology results: report reviewed (CT brain C-spine and lumbosacral spine is negative for significant traumatic injury), image reviewed Disposition Clinical Impression: Fall, Weakness, Alcohol intoxication Disposition: ADMITTED IP TO THIS [facility] Condition: Fair Referrals: None,Stated [REFERRING] - 1-2 days
[2021-09-19 01:45] LABS: Basophils # (A) 0.1 k/uL (0-0.2); Basophils % (A) 3 %; Eosinophils # (A) 0.1 k/uL (0-0.7); Eosinophils % (A) 2 %; HCT 45.5 % (39.0-53.0); HGB 15.3 gm/dL (13.0-17.5); Lymphocytes # (A) 1.8 k/uL (1.0-4.8); Lymphocytes % (A) 59 %; MCH 34.7 pg (25.0-35.0); MCHC 33.6 g/dL (31.0-37.0); MCV 103.3 fL (80.0-100.0); Macrocytosis Slight; Mean Platelet Volume 9.1; Monocytes # (A) 0.2 k/uL (0-1.0); Monocytes % (A) 5 %; Neutrophils # (A) 0.9 k/uL (1.3-7.7); Neutrophils % (A) 29 %; Platelet Count 117 k/uL (150-450); RDW 15.3 % (11.5-15.5)
[2021-09-19 01:54] LABS: ALT 80 U/L (4-49); AST 221 U/L (17-59); African American GFR (CKD) >90 (>60 ml/min/1.73 sqM); Albumin 4.1 g/dL (3.5-5.0); Alkaline Phosphatase 66 U/L (38-126); Anion Gap 15 mmol/L; Blood Urea Nitrogen 9 mg/dL (9-20); Calcium 9.3 mg/dL (8.4-10.2); Carbon Dioxide 24 mmol/L (22-30); Chloride 101 mmol/L (98-107); Glucose 106 mg/dL (74-99); Magnesium 1.4 mg/dL (1.6-2.3); Non-African American GFR(CKD) >90 (>60 ml/min/1.73 sqM); Phosphorus 4.5 mg/dL (2.5-4.5); Potassium 3.8 mmol/L (3.5-5.1); Sodium 140 mmol/L (137-145); Total Bilirubin 0.9 mg/dL (0.2-1.3); Total Protein 6.6 g/dL (6.3-8.2)
--- NOTE | 2021-09-19 02:07 | CT ---
EXAMINATION TYPE: CT brain maria ines lema con DATE OF EXAM: 09/19/2021 COMPARISON: None HISTORY: multiple falls, etoh CT DLP: 1629.8 mGycm Automated exposure control for dose reduction was used. Ventricles have normal size. There is no mass effect or midline shift. There is no sign of intracrani al hemorrhage. There is mild cerebral atrophy. Calvarium is intact. The skull base is intact. There i s normal aeration of the mastoid sinuses. Cervical vertebrae abnormal alignment. There is degenerative disc space narrowing at C5-6 and C6-7. F acet joints are intact. IMPRESSION: No acute intracranial abnormality. Mild degenerative disc changes in the lower cervical spine. No fracture.
--- NOTE | 2021-09-19 02:12 | CT ---
EXAMINATION TYPE: CT lumbar spine wo con DATE OF EXAM: 09/19/2021 COMPARISON: None HISTORY: multiple falls, etoh CT DLP: 9.1 mGycm Automated exposure control for dose reduction was used. Images obtained from the level of T12-S3 vertebra without contrast. Lumbar vertebrae have normal alignment. There is L4-5 disc space narrowing. There is no compression f racture. Facet joints are intact. There is no lumbar paraspinal mass. Sacroiliac joints are intact. IMPRESSION: Degenerative disc changes at L4-5. No fracture.
--- NOTE | 2021-09-19 02:15 | CT ---
EXAMINATION TYPE: CT pelvis wo con DATE OF EXAM: 09/19/2021 COMPARISON: None HISTORY: multiple falls, etoh CT DLP: 9.1 mGycm Automated exposure control for dose reduction was used. Images obtained from the iliac crests to the subtrochanteric femurs without contrast. Sacroiliac joints are intact. The pelvic ring is intact. Proximal femurs appear intact. Hip joint spa pepper are fairly normal. There is no evidence of hip fracture. There is no free fluid in the pelvis. IMPRESSION: No acute abnormality of the pelvis. No fracture.
[2021-09-19 02:44] LABS: Alcohol 322 mg/dL
[2021-09-19] MEDS ORDERED: HYDROmorphone 0.5 MG/0.5 ML SYRINGE IVP PRN (02:59)
[2021-09-19] MEDS ORDERED: THIAMINE 100 MG/ML 2 ML VIAL IM STA (02:59)
[2021-09-19] MEDS ORDERED: LORazepam 2 MG/ML INJ IV PRN ×2 (02:59)
[2021-09-19] MEDS ORDERED: NALOXONE 0.4 MG/ML 1 ML VIAL IV PRN (02:59)
[2021-09-19] MEDS ORDERED: ONDANSETRON 4 MG/2 ML VIAL IVP PRN (02:59)
[2021-09-19] MEDS: LORazepam 2 MG/ML INJ IV PRN ×6 (04:18→19:31)
[2021-09-19] MEDS: DEXTROSE 5%-0.45% NACL 1,000 ML IV SCH ×3 (04:20→23:45)
[2021-09-19] MEDS: SODIUM CHLORIDE 0.9% 1,000 ML IV SCH ×3 (04:26→18:20)
--- NOTE | 2021-09-19 05:11 | P.HPIM ---
History of Present Illness H&P Date: 09/19/21 Patient is a 60-year-old male with a PMH of EtOH abuse, hypertension, history of lower extremity necrotizing fasciitis with chronic ulcers, who presents to the emergency room with complaints of multiple falls with urinary and fecal incontinence. The patient reports that he has been feeling off balance and has had multiple falls since this past Wednesday when he initially fell off his truck and hit the back of his head. He denied loss of consciousness. Reports feeling lightheaded and off balance each time he attempts to walk with 6-7 falls in the past 5 days. Reports drinking only a shot of whiskey and one beer nightly after coming home from work. 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 He also reports having 1-2 episodes of urinary and fecal incontinence daily. Denied lower extremity weakness, numbness, tingling. Also denied visual disturbances, chest discomfort, shortness of breath, fever, cough, chills, nausea, vomiting, abdominal pain, diarrhea. In the emergency room, had/cervical spine CT, lumbar spine CT, and pelvis CT were all unremarkable. Laboratory evaluation was remarkable for alcohol level 332 AST 21, ALT 80, magnesium 1.4, WBC count 3.0, platelet count 117, and MCV 103. Review of systems: Pertinent positives and negatives as discussed in HPI, a complete review of systems was performed and all other systems are negative. Physical examination: General: non toxic, no distress, appears at stated age, obese Derm: no unusual rashes/lesions, right hip bruising noted, warm, dry Head: atraumatic, normocephalic, symmetric Eyes: EOMI, no lid lag, anicteric sclera, pupils equal round reactive to light ENT: Nose and ears atraumatic, no thrush, no pharyngeal erythema Neck: No thyromegaly, no cervical lymphadenopathy, trachea midline, supple Mouth: no lip lesion, mucus membranes moist Cardiovascular: S1S2 reg, no murmur, positive posterior tibial pulse bilateral, no edema, capillary refill less than 2 seconds Lungs: CTA bilateral, no rhonchi, no rales , no accessory muscle use Abdominal: soft, nontender to palpation, no guarding, no appreciable o rganomegaly, normal bowel sounds Ext: no gross muscle atrophy, muscle strength 5 out of 5 in all 4 extremities grossly, no contractures, Neuro: CN II-XI grossly intact, light touch intact all 4 extremities, finger to nose within normal limits, Psych: Alert, oriented, appropriate affect Assessment/plan Multiple falls with urinary and fecal incontinence -Differential includes B12 deficiency, alcohol intoxication, possible cauda equina syndrome -Neurology consult and consider MRI -PT consult -Fall precautions EtOH abuse -Advised on importance of cessation of alcohol use -Thiamine, multivitamin -IV fluids -CIWA protocol -airport utility worker consult Thrombocytopenia -Likely secondary to ongoing alcohol abuse -Monitor for now Macrocytosis -Obtain anemia panel Hypomagnesemia Replace and monitor DVT prophylaxis -Heparin subcu The patient is admitted with an anticipated less than 2 midnight stay for evaluation of falls CODE STATUS: Full Code Discussed with: Patient Anticipated discharge date: in am Anticipated discharge place: Home Past Medical History Past Medical History: Hypertension, Osteoarthritis (OA) Additional Past Medical History / Comment(s): Pt states bitten by brown recluse spider/necrotizing fascitis/ L lower leg/with extended hospitalization, benign colon polyps removed, arthritis bilateral knees/chronic bilateral knee pain. History of Any Multi-Drug Resistant Organisms: None Reported Past Surgical History: Hernia Repair Additional Past Surgical History / Comment(s): cardiac cath 01/20 Past Anesthesia/Blood Transfusion Reactions: No Reported Reaction Past Psychological History: Anxiety Smoking Status: Former smoker Past Alcohol Use History: Occasional Past Drug Use History: None Reported - Past Family History Father Family Medical History: Cancer Additional Family Medical History / Comment(s): Father of colorectal cancer Brother(s) Family Medical History: Cancer Additional Family Medical History / Comment(s): Brother survived colorectal cancer. Mother Family Medical History: No Reported History Additional Family Medical History / Comment(s): Mother was healthy. Medications and Allergies Home Medications Medication Instructions Recorded Confirmed Type Escitalopram [Lexapro] 20 mg PO DAILY 07/28/21 07/28/21 History amLODIPine [Norvasc] 5 mg PO DAILY 07/28/21 07/28/21 History lisinopriL 40 mg PO DAILY 07/28/21 07/28/21 History Folic Acid 1 mg PO DAILY #30 tablet 07/29/21 Rx Multivitamins, Thera [Multivitamin] 1 tab PO DAILY #30 tablet 07/29/21 Rx Thiamine [Vitamin B-1] 100 mg PO DAILY #30 tablet 07/29/21 Rx chlordiazePOXIDE HCl [Librium] 25 mg PO TID 3 Days #9 capsule 07/29/21 Rx Allergies Allergy/AdvReac Type Severity Reaction Status Date / Time morphine AdvReac Nausea & Verified 07/28/21 08:25 Vomiting Physical Exam Vitals: Vital Signs Temp Pulse Resp BP Pulse Ox 09/19/21 04:27 74 18 149/106 96 09/19/21 02:44 79 18 148/103 96 09/19/21 01:02 98.0 F 92 18 150/100 92 L Intake and Output 09/18/21 09/18/21 09/19/21 14:59 22:59 06:59 Other: Weight 99.79 kg Results CBC & Chem 7: 09/19/21 01:26 09/19/21 01:26 Labs: Abnormal Lab Results - Last 24 Hours (Table) 09/19/21 09/19/21 Range/Units 01:26 01:26 WBC 3.0 L (3.8-10.6) k/uL MCV 103.3 H (80.0-100.0) fL Plt Count 117 L (150-450) k/uL Neutrophils # 0.9 L (1.3-7.7) k/uL Creatinine 0.58 L (0.66-1.25) mg/dL Glucose 106 H (74-99) mg/dL Magnesium 1.4 L (1.6-2.3) mg/dL AST 221 H (17-59) U/L ALT 80 H (4-49) U/L Serum Alcohol 322 H* mg/dL
[2021-09-19] MEDS ORDERED: HYDROmorphone 1 MG/ML 1 ML SYRINGE IVP PRN (08:09)
[2021-09-19] MEDS: HEPARIN SODIUM,PORCINE/PF 5,000 UNIT/0.5 ML SYRINGE SQ SCH ×3 (08:16→23:44)
--- NOTE | 2021-09-19 10:56 | XR ---
EXAMINATION TYPE: XR Hip Limited RT DATE OF EXAM: 09/19/2021 COMPARISON: NONE HISTORY: Pain TECHNIQUE: 2 views submitted FINDINGS: There is moderate to severe narrowing of joint space. Well-corticated density adjacent to the greater trochanter. There is a subtle questionable defect along the upper margin the right femoral neck. Sof t tissue surgical clips noted. IMPRESSION: 1. Arthropathy. Recommend CT of the right hip to assess right femoral neck to exclude fracture..
[2021-09-19 11:18] LABS: Magnesium 1.5 mg/dL (1.5-2.4)
[2021-09-19] MEDS: THIAMINE 100 MG/ML 2 ML VIAL IVP SCH ×2 (11:24→21:22)
[2021-09-19] MEDS: KETOROLAC 30 MG/ML 1 ML VIAL IVP PRN ×2 (11:25→17:17)
--- NOTE | 2021-09-19 16:09 | P.CNNES ---
History of Present Illness Consult date: 09/19/21 Requesting physician: Da Stacy Reason for Consult: fall, urinary and fecal incontinence History of Present Illness: This is a 60-year-old gentleman with history of necrotizing fascitis over the left lower extremity (from spider bite) about 10 years ago, chronic history of alcohol use who presents to the emergency department on 09/19/2021 because of multiple falls with urinary and fecal incontinence. Patient stated that close to about a week ago he fell on the floor as he was getting down because it was slippery and as a result he had the right thigh pain and left shoulder pain. He denies any loss of consciousness associated with this, denies of the any history of seizure. Denies any urinary or bowel incontinence associate with that or any tongue bite. As a result of that she's been having recurrent urinary incontinence. Patient denies of any neck pain or back pain. Denies of any focal weakness, difficulty swallowing, any visual disturbance. He states that he drinks alcohol on a daily basis for at least 40 years and drinks at nighttime. He does not feel like he has any alcohol problem. His alcohol level was 322 and he does not feel it significant enough. WORK-UP: His MCV is 103, platelet is 117,000. Initial white blood cells 3.0 Calcium Cipro 3, phosphorus 4.5, magnesium is 1.4 and repeat is 1.5 AST is 221, ALT is 80, serum alcohol is 322 CT head is reported as No acute intracranial abnormality. I personally reviewed the CT of the head there is no acute or subacute ischemia and there is no typical hemorrhage. CT Cervical spine is reported as mild degenerative disc changes in the lower cervical spine. No fracture. I personally reviewed the CT cervical spine and there is no significant stenosis. CT Lumbar is reported as degenerative disc changes at L4-L5. No fracture. CT Plevis is reported as no acute abnormality of pelvis. No fracture. Dias virus PCR was not detected Review of Systems Review of system: The 12 point system was reviewed and apparent positive and negative per HPI. Past Medical History Past Medical History: Hypertension, Osteoarthritis (OA) Additional Past Medical History / Comment(s): Pt states bitten by brown recluse spider/necrotizing fascitis/ L lower leg/with extended hospitalization, benign colon polyps removed, arthritis bilateral knees/chronic bilateral knee pain. History of Any Multi-Drug Resistant Organisms: None Reported Past Surgical History: Hernia Repair Additional Past Surgical History / Comment(s): cardiac cath 01/20 Past Anesthesia/Blood Transfusion Reactions: No Reported Reaction Past Psychological History: Anxiety Smoking Status: Former smoker Past Alcohol Use History: Occasional Past Drug Use History: None Reported - Past Family History Father Family Medical History: Cancer Additional Family Medical History / Comment(s): Father of colorectal cancer Brother(s) Family Medical History: Cancer Additional Family Medical History / Comment(s): Brother survived colorectal cancer. Mother Family Medical History: No Reported History Additional Family Medical History / Comment(s): Mother was healthy. Medications and Allergies Home Medications Medication Instructions Recorded Confirmed Type Escitalopram [Lexapro] 20 mg PO DAILY 07/28/21 09/19/21 History amLODIPine [Norvasc] 5 mg PO DAILY 07/28/21 09/19/21 History lisinopriL 40 mg PO DAILY 07/28/21 09/19/21 History Folic Acid 1 mg PO DAILY #30 tablet 07/29/21 09/19/21 Rx Multivitamins, Thera [Multivitamin] 1 tab PO DAILY #30 tablet 07/29/21 09/19/21 Rx Thiamine [Vitamin B-1] 100 mg PO DAILY #30 tablet 07/29/21 09/19/21 Rx Allergies Allergy/AdvReac Type Severity Reaction Status Date / Time morphine AdvReac Nausea & Verified 09/19/21 06:09 Vomiting Physical Examination - Vital Signs Vital Signs: Vital Signs Temp Pulse Pulse Resp BP BP Pulse Ox 09/19/21 08:00 97.6 F 80 16 136/83 95 09/19/21 04:27 74 18 149/106 96 09/19/21 02:44 79 18 148/103 96 09/19/21 01:02 98.0 F 92 18 150/100 92 L Intake and Output 09/18/21 09/19/21 09/19/21 22:59 06:59 14:59 Other: Voiding Method Urinal Incontinent Weight 99.79 kg GENERAL: The patient is lying in bed and is not in acute distress. CHEST: The heart rate is regular rate rhythm. No murmurs to auscultation. LUNG: Clear to auscultation bilaterally no wheezing noted throughout. Not labored breathing. ABDOMEN/GI: Bowel sounds present in all 4 quadrants. No tenderness to palpation throughout. NEUROLOGICAL: Higher mental function: The patient is awake, alert, oriented to self, place and time. Patient is following commands. No aphasia and no neglect. Cranial nerves: The pupils are round, equal and reactive to light and accommodation. Visual rudolph are full to confrontation throughout. Extraocular movement is intact no nystagmus is noted. Facial sensation is normal to touch throughout. The facial strength is normal throughout. Hearing is normal bilaterally to hand rub. Tongue is midline and moved [id number] without any difficulty. No dysarthria is noted. Shoulder shrug is normal bilaterally. Motor: Gait is wide base gait and is unsteady. The strength is 5 over 5 throughout. Normal tone and bulk. Cerebellum: Normal finger to nose h bilaterally. Sensation: Sensation is normal to touch throughout. Reflexes (right/left): 2+ throughout except ankles are 1+ bilaterally. Plantars are mute bilaterally. Results - Laboratory Findings CBC and BMP: 09/19/21 01:26 09/19/21 01:26 Abnormal Lab Findings: Abnormal Labs 09/19/21 09/19/21 01:26 01:26 WBC 3.0 L MCV 103.3 H Plt Count 117 L Neutrophils # 0.9 L Creatinine 0.58 L Glucose 106 H Magnesium 1.4 L AST 221 H ALT 80 H Serum Alcohol 322 H* Assessment and Plan Assessment: Recurrent falls likely due to significant alcohol use/intoxication Alcohol intoxication and he's been drinking on a daily basis for at least 40 years area is all call level was 322 Macrocytosis likely due to chronic alcohol use Mild thrombocytopenia due to alcohol use Chronic alcohol use Plan: I recommended MRI of the lumbar spine w/ and w/o since the patient is having recurrent urinary incontinence for the past 1 week to rule out any lumbar process and MRI Brain w/ and w/o. I feel likely presentation is likely due to chronic alcohol use and it's significant. Patient refusing MRI. Currently the patient is on thiamine 100 mg IV twice a day charted by the primary team Vitamin B1 level is ordered by the primary team is pending as well as a red blood cell folate and is pending PT is consulted. I also consult occupation therapy. Patient is on [facility] protocol and will defer management to primary team. Patient was counseled on alcohol cessation but patient denies any alcohol problem. Recommend alcohol anonymous group. We'll defer the rest of the medical management to the primary team The plan was discussed with the patient as well as his nurse. As stated above patient is refusing further imaging and was to go home. From my side if if he wants to go home and has to be at [facility]. Thank you for the consultation. Patient is refusing MRI. He doesn't feel like there is any further workup he needs. Neurology was sign off since the patient is refusing workup from neurological perspective. Please reconsult if needed. Adiel Mcginnis M.D. Neuro-hospitalist Time with Patient: Greater than 30
[2021-09-19] MEDS ORDERED: THIAMINE 100 MG TAB PO SCH (17:30)
--- NOTE | 2021-09-19 18:11 | P.PN ---
Subjective Progress Note Date: 09/19/21 (delayed charting seen at 0930) Principal diagnosis: falls Patient is a 60-year-old male with ongoing alcohol abuse as well as 2 shots and 2 beers daily hypertension, prior lower necrotizing fasciitis, and multiple other comorbid condition presented to the hospital with complaints of recurrent falls and urinary incontinence. 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 In the ER he underwent extensive evaluation. Head CT and cervical spine CT showed some degenerative changes in the cervical spine, lumbar spine CT demonstrated L4 5 degenerative changes without fracture. Pelvic CT showed no significant abnormalities. Right hip x-ray demonstrated arthroscopy and recommended CT of the right hip to assess the femoral neck to exclude fracture. Laboratory analysis showed an decreased white blood cell count at 3, decreased platelets at 117, AST of 221, and ALT of 80. Serum alcohol was elevated at 422. Patient seen and examined at bedside. He states that he has been drinking one shot in 2 beers daily for years. Last Wednesday he fell out of his truck and hit his head. 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 Since that time he has had multiple recurrent falls and difficulty with gait and balance. He initially tells me he has incontinent of stool and urine. He then states it is more that he can't get to the bathroom in time and has had multiple accidents. He denies anything similar previously. 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 He denies any difficulty in thinking. He denies any back pain. He does complain of significant right hip pain and bruising as well as head pain, wrist pain, bilateral shoulder pain, ankle pain, and pain in multiple sites. The worst of his right hip. Patient is asking for more Dilaudid specifically. I did offer him Toradol for bone pain. General: non toxic, no distress, appears at stated age Derm: warm, dry Head: atraumatic, normocephalic, symmetric Eyes: EOMI, no lid lag, anicteric sclera Mouth: no lip lesion, mucus membranes moist Cardiovascular: S1S2 reg, no murmur, positive posterior tibial pulse bilateral, Lungs: Decreased breath sounds bilateral, no rhonchi, no rales , no accessory muscle use Abdominal: soft, nontender to palpation, no guarding, no appreciable organomegaly Ext: no gross muscle atrophy, no edema, no contractures Neuro: CN II-XI grossly intact,, poor finger to nose, muscle strength 5 out of 5 in bilateral upper and lower extremities, rectal tone intact, light touch intact bilateral face, upper extremities, and lower extremities Psych: Alert, oriented, appears slightly agitated Recurrent falls with gait ataxia and urinary incontinece - rosy ETOH related -Consult neurology. They recommended an MRI brain/l-spine, which the patient refused -Start patient on IV thiamine 100 mg twice a day 5 days for possible Warnicke Korsakoff syndrome -Fall precautions Alcohol abuse with impending withdrawal -[facility] protocol -Thiamine and folic acid supplementation - social work Right hip pain -Check x-ray right hip. This demonstrated possible fracture and recommended CT. CT head has been ordered -Consult ortho THrombocytopenia, leukopenia - suspect due to ETOH use - repeat CBC in AM Hypomagnesemia - replaced - recheck in AM Transaminitis - likely related to ETOH abuse - repeat in AM DVT prophylaxis: SCDs Discussed with: Patient, nursing, Dr. Mcginnis Anticipated discharge: in 1-[address]: home A total of 45 minutes was spent on the care of this complex patient more than 50% of the time was spent in counseling and care coordination. Objective - Vital Signs Vital signs: Vital Signs Temp 97.7 F 09/19/21 14:00 Pulse 87 09/19/21 14:00 Resp 18 09/19/21 14:00 BP 159/96 09/19/21 14:00 Pulse Ox 97 09/19/21 14:00 Intake & Output 09/18/21 09/19/21 09/19/21 18:59 06:59 18:59 Output Total 700 Balance -700 Weight 99.79 kg Output: Urine 700 Other: Voiding Method Urinal Incontinent # Voids 2 - Labs CBC & Chem 7: 09/19/21 01:26 09/19/21 01:26 Labs: Abnormal Lab Results - Last 24 Hours (Table) 09/19/21 09/19/21 Range/Units 01:26 01:26 WBC 3.0 L (3.8-10.6) k/uL MCV 103.3 H (80.0-100.0) fL Plt Count 117 L (150-450) k/uL Neutrophils # 0.9 L (1.3-7.7) k/uL Creatinine 0.58 L (0.66-1.25) mg/dL Glucose 106 H (74-99) mg/dL Magnesium 1.4 L (1.6-2.3) mg/dL AST 221 H (17-59) U/L ALT 80 H (4-49) U/L Serum Alcohol 322 H* mg/dL
[2021-09-19 19:05] VITALS: RESP 16
--- NOTE | 2021-09-19 19:22 | CT ---
EXAMINATION TYPE: CT femur RT wo con DATE OF EXAM: 09/19/2021 COMPARISON: None HISTORY: Fall from truck [address] DLP: 1133.5 mGycm Automated exposure control for dose reduction was used. Images obtained from the mid ileum to the proximal tibia without contrast. Hip joint is anatomic. Acetabulum appears intact. The sacroiliac joint is intact. There is no evidenc e of hip fracture. There is some spurring of the greater trochanter of the right femur. The knee joint is anatomic. There is no evidence of a soft tissue mass. There is small knee joint ef fusion. The patella is intact. Proximal tibia and fibula appear intact. IMPRESSION: No acute abnormality of the right femur. No fracture seen. There is a very small right knee joint eff usion.
[2021-09-20] MEDS: LORazepam 2 MG/ML INJ IV PRN (02:13)
[2021-09-20] MEDS: SODIUM CHLORIDE 0.9% 1,000 ML IV SCH ×2 (02:19→09:53)
[2021-09-20 08:54] LABS: MCH 33.5 pg (27.0-32.0); MCHC 34.2 g/dL (32.0-37.0); MCV 97.9 fL (80.0-97.0); Mean Platelet Volume 11.7 fL (9.5-12.2); NRBC Per 100 WBC 0 /100 WBCS (0.0-0.0); Platelet Count 100 X 10*3/uL (140-440); RBC 3.88 X 10*6/uL (4.40-5.60); RDW 15.4 % (11.5-14.5); WBC 2.73 X 10*3/uL (4.50-10.00)
[2021-09-20] MEDS ORDERED: FOLIC ACID 1 MG TAB PO SCH (09:00)
[2021-09-20] MEDS ORDERED: MULTIVITAMINS, THERA 1 EACH TAB PO SCH (09:00)
[2021-09-20 09:05] LABS: African American GFR (CKD) 137.5 (60.0-200.0); Albumin 3.8 g/dL (3.8-4.9); Albumin/Globulin Ratio 2.38 (1.60-3.17); Anion Gap 14.1 mmol/L (10.00-18.00); BUN/Creat Ratio 11.6 Ratio (12.00-20.00); Blood Urea Nitrogen 5.8 mg/dL (9.0-27.0); Calcium 8.1 mg/dL (8.7-10.3); Carbon Dioxide 24.9 mmol/L (20.0-27.5); Globulin 1.6 g/dL (1.6-3.3); Magnesium 1.4 mg/dL (1.5-2.4); Non-African American GFR(CKD) 118.6 (60.0-200.0); Potassium 3.3 mmol/L (3.5-5.5); Total Bilirubin 1.1 mg/dL (0.30-1.20); Total Protein 5.4 g/dL (6.2-8.2)
[2021-09-20] MEDS: HEPARIN SODIUM,PORCINE/PF 5,000 UNIT/0.5 ML SYRINGE SQ SCH (09:52)
[2021-09-20] MEDS: DEXTROSE 5%-0.45% NACL 1,000 ML IV SCH (09:52)
[2021-09-20] MEDS: THIAMINE 100 MG/ML 2 ML VIAL IVP SCH (09:52)
--- NOTE | 2021-09-20 10:23 | P.CNOR ---
<Claire Abbott Sarah - Last Filed: 09/20/21 10:30> History of Present Illness - [facility] Consult date: 09/20/21 Consult reason: joint pain (Right hip pain) History of present illness: The patient is a 60-year-old male with a history of EtOH abuse, hypertension, lower extremity necrotizing fasciitis with chronic ulcers, who presented to the emergency department with complaints of multiple falls lately. He states that he's been feeling off balance and initially fell off of his truck and hit his head and hurt his right hip. X-rays and CT of the right hip/pelvis in the emergency department negative for fracture or dislocation. Orthopedics was co nsulted for further evaluation and care of the right hip. This morning, the patient states that his right hip pain has completely resolved and he is able to ambulate without difficulty or increased pain in the hip. Review of Systems Constitutional: Denies chills, Denies fatigue, Denies fever Cardiovascular: Denies chest pain, Denies shortness of breath Respiratory: Denies cough Gastrointestinal: Denies diarrhea, Denies nausea, Denies vomiting Musculoskeletal: right: hip pain, hip stiffness Past Medical History Past Medical History: Hypertension, Osteoarthritis (OA) Additional Past Medical History / Comment(s): Pt states bitten by brown recluse spider/necrotizing fascitis/ L lower leg/with extended hospitalization, benign colon polyps removed, arthritis bilateral knees/chronic bilateral knee pain. History of Any Multi-Drug Resistant Organisms: None Reported Past Surgical History: Hernia Repair Additional Past Surgical History / Comment(s): cardiac cath 01/20 Past Anesthesia/Blood Transfusion Reactions: No Reported Reaction Past Psychological History: Anxiety Smoking Status: Former smoker Past Alcohol Use History: Occasional Past Drug Use History: None Reported - Past Family History Father Family Medical History: Cancer Additional Family Medical History / Comment(s): Father of colorectal cancer Brother(s) Family Medical History: Cancer Additional Family Medical History / Comment(s): Brother survived colorectal cancer. Mother Family Medical History: No Reported History Additional Family Medical History / Comment(s): Mother was healthy. Medications and Allergies Home Medications Medication Instructions Recorded Confirmed Type Escitalopram [Lexapro] 20 mg PO DAILY 07/28/21 09/19/21 History amLODIPine [Norvasc] 5 mg PO DAILY 07/28/21 09/19/21 History lisinopriL 40 mg PO DAILY 07/28/21 09/19/21 History Folic Acid 1 mg PO DAILY #30 tablet 07/29/21 09/19/21 Rx Multivitamins, Thera [Multivitamin 1 tab PO DAILY #30 tablet 07/29/21 09/19/21 Rx (formulary)] Ergocalciferol [Vitamin D2 (1250 50,000 unit PO WEEKLY #12 capsule 09/20/21 Rx Mcg = 75834 Iu)] Magnesium Oxide 400 mg PO AC-BID #60 tablet 09/20/21 Rx Thiamine [Vitamin B-1] 100 mg PO BID #30 tablet 09/20/21 Rx Allergies Allergy/AdvReac Type Severity Reaction Status Date / Time morphine AdvReac Nausea & Verified 09/19/21 06:09 Vomiting Physical Examination The patient is a 60 year old male that is no acute distress. He is alert and oriented x3. The patient's head is normocephalic and atraumatic. Exam of the cervical spine reveals no pain upon palpation or range of motion. Exam of the bilateral upper extremities reveal no obvious deformities or pain upon range of motion. Exam of the bilateral lower extremities reveals no pain upon palpation. There is a large evolving bruise to the lateral hip. No pain upon palpation to the lateral hip. There is no pain upon logrolling and any range of motion of the leg. Bilateral calves are soft and nontender. Patient has good foot and ankle motion bilaterally. Neurological and circulatory status is intact. Results - Labs Labs: Abnormal Lab Results - Last 24 Hours (Table) 09/19/21 09/20/21 09/20/21 Range/Units 10:02 04:34 04:34 WBC 2.73 L (4.50-10.00) X 10*3/uL RBC 3.88 L (4.40-5.60) X 10*6/uL Hct 38.0 L (39.6-50.0) % MCV 97.9 H (80.0-97.0) fL MCH 33.5 H (27.0-32.0) pg RDW 15.4 H (11.5-14.5) % Plt Count 100 L (140-440) X 10*3/uL Potassium 3.3 L (3.5-5.5) mmol/L BUN 5.8 L (9.0-27.0) mg/dL Creatinine 0.5 L (0.6-1.5) mg/dL BUN/Creatinine Ratio 11.60 L (12.00-20.00) Ratio Glucose 116 H (70-110) mg/dL Calcium 8.1 L (8.7-10.3) mg/dL Magnesium 1.4 L (1.5-2.4) mg/dL AST 131 H (14-35) U/L ALT 66 H (10-49) U/L Total Protein 5.4 L (6.2-8.2) g/dL Vitamin D 25-Hydroxy 12.6 L (30.0-100.0) ng/mL H & H 09/19/21 09/20/21 Range/Units 01:26 04:34 Hgb 15.3 13.0 (13.0-17.5) gm/dL Hct 45.5 38.0 L (39.0-53.0) % Result Diagrams: 09/20/21 04:34 09/20/21 04:34 - Diagnostic results Hip x-ray: image reviewed (X-rays of the right hip reveal no acute fractures or dislocation. Osteoarthritis noted. ) Hip CT: image reviewed (CT of the pelvis reveal no acute fractures or deformity. ) Assessment and Plan (1) Right hip pain Current Visit: Yes Status: Acute Code(s): M25.551 - PAIN IN RIGHT HIP SNOMED Code(s): 97061148 (2) Alcohol intoxication Current Visit: Yes Status: Acute Code(s): F10.929 - ALCOHOL USE, UNSPECIFIED WITH INTOXICATION, UNSPECIFIED SNOMED Code(s): 59437974 (3) Fall Current Visit: Yes Status: Acute Code(s): W19.XXXA - UNSPECIFIED FALL, INITIAL ENCOUNTER SNOMED Code(s): 7999633 Plan: The clinical and diagnostic findings were discussed with the patient. He states that his pain has completely resolved since being in the hospital. X-rays and CT are negative for fracture. No further orthopedic treatment or testing is needed at this time. He may weight-bear as tolerated to the right lower extremity. Patient is orthopedically stable for discharge home today. Patient was encouraged to follow-up in our office if the pain does return for further evaluation. <Cherri Patel - Last Filed: 09/20/21 12:10> Physical Examination Osteopathic Statement: *. No significant issues noted on an osteopathic structural exam other than those noted in the History and Physical/Consult. Results - Labs Labs: Abnormal Lab Results - Last 24 Hours (Table) 09/19/21 09/20/21 09/20/21 Range/Units 10:02 04:34 04:34 WBC 2.73 L (4.50-10.00) X 10*3/uL RBC 3.88 L (4.40-5.60) X 10*6/uL Hct 38.0 L (39.6-50.0) % MCV 97.9 H (80.0-97.0) fL MCH 33.5 H (27.0-32.0) pg RDW 15.4 H (11.5-14.5) % Plt Count 100 L (140-440) X 10*3/uL Potassium 3.3 L (3.5-5.5) mmol/L BUN 5.8 L (9.0-27.0) mg/dL Creatinine 0.5 L (0.6-1.5) mg/dL BUN/Creatinine Ratio 11.60 L (12.00-20.00) Ratio Glucose 116 H (70-110) mg/dL Calcium 8.1 L (8.7-10.3) mg/dL Magnesium 1.4 L (1.5-2.4) mg/dL AST 131 H (14-35) U/L ALT 66 H (10-49) U/L Total Protein 5.4 L (6.2-8.2) g/dL Vitamin D 25-Hydroxy 12.6 L (30.0-100.0) ng/mL H & H 09/19/21 09/20/21 Range/Units 01:26 04:34 Hgb 15.3 13.0 (13.0-17.5) gm/dL Hct 45.5 38.0 L (39.0-53.0) % Result Diagrams: 09/20/21 04:34 09/20/21 04:34 Assessment and Plan Plan: Seen and examined. Seems like his pain was due to a contusion. His pain is resolved and he has full range of motion. Negative imaging (XR/CT). No restrictions from our standpoint.
[2021-09-20 11:08] VITALS: BP 153/70; PULSE 69; TEMP 97.9
[2021-09-20] MEDS ORDERED: POTASSIUM CHLORIDE ER 20 MEQ TAB.ER PO STA (11:37)
[2021-09-20] MEDS ORDERED: MAGNESIUM OXIDE 400 MG TAB PO SCH (11:45)
--- NOTE | 2021-09-20 17:24 | P.DS ---
Providers Date of admission: 09/19/21 02:59 Expected date of discharge: 09/20/21 Attending physician: Da Stacy MD Consults: 09/19/21 05:10 Consult Physician Urgent Consulting Provider: Haven Houser Consult Reason/Comments: Fall, urinary and fecal incontinence Do you want consulting provider notified?: Yes 09/19/21 18:01 Consult Physician Routine Consulting Provider: Fred Weldon Consult Reason/Comments: right hip pain s/p falls Do you want consulting provider notified?: Yes Primary care physician: Penelope Gonzalez MD Hospital Course: Discharge Diagnosis: Alcohol abuse with impending withdrawal Recurrent falls Urinary incontinence Right hip contusion Leukopenia and thrombocytopenia Hypomagnesemia Transaminitis Vitamin D deficiency Hospital Course: Patient is a 60-year-old male with ongoing alcohol abuse as well as 2 shots and 2 beers daily hypertension, prior lower necrotizing fasciitis, and multiple other comorbid condition presented to the hospital with complaints of recurrent falls and urinary incontinence. 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 In the ER he underwent extensive evaluation. Head CT and cervical spine CT showed some degenerative changes in the cervical spine, lumbar spine CT demonstrated L4 5 degenerative changes without fracture. Pelvic CT showed no significant abnormalities. Right hip x-ray demonstrated arthroscopy and recommended CT of the right hip to assess the femoral neck to exclude fracture. Laboratory analysis showed an decreased white blood cell count at 3, decreased platelets at 117, AST of 221, and ALT of 80. Serum alcohol was elevated at 422. He was seen by neurology who felt that his weakness was likely secondary to alcohol use. Neurology offered MRI brain and L-spine however patient did not feel this is necessary. He did undergo a CT of the right hip which demonstrated no signs of acute fracture. His hip pain resolved while he is in the hospital and ambulation improved. He was adamant that he went to be discharged home and not have further evaluation. He felt that proved after his hospital stay. Follow-up: PCP in 2-3 days. Patient was found to have significantly low vitamin D levels and will be started on vitamin D 5000 units once weekly 12 doses. He will also continue on magnesium supplementation at 400 mg twice daily due to hypomagnesemia. I've also asked to continue on thiamine 100 mg twice daily. I've encouraged him to stop drinking alcohol. Patient seen and examined at bedside. States that his weakness and gait instability is resolved. His right hip pain is resolved and he is requesting to be discharged. We discussed the importance of follow-up. He has been agreement to follow up with his PCP next week. Vital signs reviewed and stable. General: non toxic, no distress, appears at stated age Derm: warm, dry, multiple contusions Head: atraumatic, normocephalic, symmetric Eyes: EOMI, no lid lag, anicteric sclera Mouth: no lip lesion, mucus membranes moist Cardiovascular: S1S2 reg, no murmur, positive posterior tibial pulse bilateral, Lungs: CTA bilateral, no rhonchi, no rales , no accessory muscle use Abdominal: soft, nontender to palpation, no guarding, no appreciable organomegaly Ext: no gross muscle atrophy, no edema, no contractures Neuro: CN II-XI grossly intact, no focal neuro deficits Psych: Alert, oriented, appears anxious and fidgety A total of 35 minutes of time were spent preparing this complex discharge summary . Patient Condition at Discharge: Stable Plan - Discharge Summary New Discharge Prescriptions: New Magnesium Oxide 400 mg PO AC-BID #60 tablet Ergocalciferol [Vitamin D2 (1250 Mcg = 46447 Iu)] 50,000 unit PO WEEKLY #12 capsule Continue amLODIPine [Norvasc] 5 mg PO DAILY Escitalopram [Lexapro] 20 mg PO DAILY Multivitamins, Thera [Multivitamin (formulary)] 1 tab PO DAILY #30 tablet lisinopriL 40 mg PO DAILY Folic Acid 1 mg PO DAILY #30 tablet Changed Thiamine [Vitamin B-1] 100 mg PO BID #30 tablet Discharge Medication List Escitalopram [Lexapro] 20 mg PO DAILY 07/28/21 [History] amLODIPine [Norvasc] 5 mg PO DAILY 07/28/21 [History] lisinopriL 40 mg PO DAILY 07/28/21 [History] Folic Acid 1 mg PO DAILY #30 tablet 07/29/21 [Rx] Multivitamins, Thera [Multivitamin (formulary)] 1 tab PO DAILY #30 tablet [Rx] Ergocalciferol [Vitamin D2 (1250 Mcg = 42638 Iu)] 50,000 unit PO WEEKLY #12 capsule 09/20/21 [Rx] Magnesium Oxide 400 mg PO AC-BID #60 tablet 09/20/21 [Rx] Thiamine [Vitamin B-1] 100 mg PO BID #30 tablet 09/20/21 [Rx] Follow up Appointment(s)/Referral(s): Penelope Gonzalez MD [Primary Care Provider] - 1 Week (office closed at time of discharge. Please call office on Wednesday to schedule appointment) Patient Instructions/Handouts: Fall Prevention (DC) Activity/Diet/Wound Care/Special Instructions: Activity: as tolerated Diet: heart healthy Special Instructions: Please follow-up with your primary next week. Recommend neurology follow-up Alcohol abstinence Discharge Disposition: HOME SELF-CARE
== END 2021-09-20 13:38 | disposition home or self-care (01) ==
LOC: EC 00:55 → 4SSUR 02:59
PROVIDERS: ADMIT Internal Medicine; ATTEND Internal Medicine
DX: F10.129 Alcohol abuse with intoxication, unspecified (principal); R29.6 Repeated falls; R32 Unspecified urinary incontinence; R15.9 Full incontinence of feces; M51.36 Other intervertebral disc degeneration, lumbar region; S70.01XA Contusion of right hip, initial encounter; R74.01 Elevation of levels of liver transaminase levels; M54.9 Dorsalgia, unspecified; E83.42 Hypomagnesemia; R53.1 Weakness; I10 Essential (primary) hypertension; M17.0 Bilateral primary osteoarthritis of knee; G89.29 Other chronic pain; F41.9 Anxiety disorder, unspecified; D69.59 Other secondary thrombocytopenia; D75.89 Other specified diseases of blood and blood-forming organs; R26.89 Other abnormalities of gait and mobility; M72.6 Necrotizing fasciitis; M47.812 Spondylosis without myelopathy or radiculopathy, cervical region; D72.819 Decreased white blood cell count, unspecified; R51.9 Headache, unspecified; M25.539 Pain in unspecified wrist; M25.511 Pain in right shoulder; M25.512 Pain in left shoulder; M16.11 Unilateral primary osteoarthritis, right hip; E55.9 Vitamin D deficiency, unspecified; R26.0 Ataxic gait; M25.579 Pain in unspecified ankle and joints of unspecified foot; Z20.822 Contact with and (suspected) exposure to COVID-19; Y90.8 Blood alcohol level of 240 mg/100 ml or more; Z87.891 Personal history of nicotine dependence; Z86.010 Personal history of colon polyps; Z91.81 History of falling; Z53.29 Procedure and treatment not carried out because of patient's decision for other reasons; Z79.899 Other long term (current) drug therapy; Z88.5 Allergy status to narcotic agent; Z71.41 Alcohol abuse counseling and surveillance of alcoholic; Z71.9 Counseling, unspecified; V58.4XXA Person boarding or alighting a pick-up truck or van injured in noncollision transport accident, initial encounter; Z80.0 Family history of malignant neoplasm of digestive organs
CPT/HCPCS: 96376 ×3; 96361; 96372 ×3; 96375 ×2; 96374; 99285; 36415; 97162; 82747; 84425; 80053 ×2; 82607; 83735 ×2; 84100; 85025; 85027; 82306; 80320; 87635; 73501; 72192; 72125; 72131; 70450; 73700; G0378 ×2; J2060 ×2; J3411 ×2; J2405; J1885; J1170 ×2; J1644 ×2

== ENCOUNTER 2021-10-22 22:22 | Observation (INO) | payer BC ==
--- NOTE | 2021-10-22 23:08 | ED ---
Alcohol HPI - General Chief Complaint: Alcohol Stated Complaint: ETOH, Fall Time Seen by Provider: 10/22/21 22:46 Source: EMS, RN notes reviewed Mode of arrival: EMS Limitations: altered mental status - History of Present Illness Initial Comments: This is a 61-year-old male with a history of alcoholism, hypertension and previous chest pain. He presents to the emergency department via EMS today. Patient unable to give me an adequate history on what happened. This laceration behind his left ear and abrasion to his lower lip. Patient unable to give any details regarding the events that led up to his fall. Patient states he was at home when EMS arrived and picked him up. Patient states she has no idea why he is here. Patient denies knowing of any fall or injury. Denies any pain at this point. Does admit to alcohol intake. Limited review of systems due to the patient's condition and alcohol intoxication MD Complaint: alcohol intoxication - Related Data Home Medications Medication Instructions Recorded Confirmed Escitalopram [Lexapro] 20 mg PO DAILY 07/28/21 10/22/21 amLODIPine [Norvasc] 5 mg PO DAILY 07/28/21 10/22/21 lisinopriL 40 mg PO DAILY 07/28/21 10/22/21 Ergocalciferol [Vitamin D2 (1250 1,250 mcg PO Q7D 10/22/21 10/22/21 Mcg = 91812 Iu)] Previous Rx's Medication Instructions Recorded Folic Acid 1 mg PO DAILY #30 tablet 07/29/21 Multivitamins, Thera [Multivitamin 1 tab PO DAILY #30 tablet 07/29/21 (formulary)] Magnesium Oxide 400 mg PO AC-BID #60 tablet 09/20/21 Thiamine [Vitamin B-1] 100 mg PO BID #30 tablet 09/20/21 Allergies Allergy/AdvReac Type Severity Reaction Status Date / Time morphine AdvReac Nausea & Verified 10/22/21 23:10 Vomiting Review of Systems ROS Statement: Those systems with pertinent positive or pertinent negative responses have been documented in the HPI. ROS Other: All systems not noted in ROS Statement are negative. Past Medical History Past Medical History: Hypertension, Osteoarthritis (OA) Additional Past Medical History / Comment(s): Pt states bitten by brown recluse spider/necrotizing fascitis/ L lower leg/with extended hospitalization, benign colon polyps removed, arthritis bilateral knees/chronic bilateral knee pain. History of Any Multi-Drug Resistant Organisms: None Reported Past Surgical History: Hernia Repair Additional Past Surgical History / Comment(s): cardiac cath 01/20 Past Anesthesia/Blood Transfusion Reactions: No Reported Reaction Past Psychological History: Anxiety Smoking Status: Former smoker Past Alcohol Use History: Occasional Past Drug Use History: None Reported - Past Family History Father Family Medical History: Cancer Additional Family Medical History / Comment(s): Father of colorectal cancer Brother(s) Family Medical History: Cancer Additional Family Medical History / Comment(s): Brother survived colorectal cancer. Mother Family Medical History: No Reported History Additional Family Medical History / Comment(s): Mother was healthy. General Exam - General Exam Comments Initial Comments: Patient's [place] coma score is 15. Patient does not recall events of the injury. Patient has obvious head injury. She now alert and oriented 2. Patient is disoriented to time and situation. However patient appears to be intoxicated and under the influence of alcohol. Cranial nerves II through XII are intact Limitations: altered mental status General appearance: alert, appears intoxicated Head exam: Present: other. Absent: atraumatic (Patient has obvious abrasion to his lower lip with surrounding tenderness. Some tenderness to the philtrum area. Minimal tenderness to the left retroauricular area with an overlying laceration. Head is no cephalically to medic otherwise.), normocephalic, normal inspection Eye exam: Present: normal appearance, PERRL, EOMI. Absent: scleral icterus, conjunctival injection, periorbital swelling ENT exam: Present: normal exam, mucous membranes moist Neck exam: Present: normal inspection. Absent: tenderness, meningismus, lymphadenopathy Respiratory exam: Present: normal lung sounds bilaterally. Absent: respiratory distress, wheezes, rales, rhonchi, stridor, chest wall tenderness, accessory muscle use Cardiovascular Exam: Present: regular rate, normal rhythm, normal heart sounds. Absent: systolic murmur, diastolic murmur, rubs, gallop, clicks GI/Abdominal exam: Present: soft, normal bowel sounds. Absent: distended, tenderness, guarding, rebound, rigid Extremities exam: Present: normal inspection, full ROM, normal capillary refill. Absent: tenderness, pedal edema, joint swelling, calf tenderness Back exam: Present: normal inspection Neurological exam: Present: alert, CN II-XII intact Expanded Neurological exam: Present: memory loss-recent event Patient oriented to: Present: person, place. Absent: time Cranial nerves: EOM's Intact: Normal, Gag Reflex: Normal, Tongue Deviation: Normal, Nystagmus: Normal, Facial Sensation: Normal, Facial Palsy with Forehead Movement: Normal, Facial Palsy without Forehead Movement: Normal Cerebellar function: Finger to Nose: Normal Eye Response: (4) open spontaneously Motor Response: (6) obeys commands Verbal Response: (5) oriented [place] Total: 15 Psychiatric exam: Present: normal affect, normal mood Skin exam: Present: warm, dry, intact, normal color. Absent: rash Course Vital Signs 10/22/21 10/22/21 22:24 22:28 Temperature 98.3 F 98.3 F Pulse Rate 85 85 Respiratory 16 16 Rate Blood Pressure 135/88 135/88 O2 Sat by Pulse 98 98 Oximetry - Reevaluation(s) Reevaluation #1: 10/23/21 02:27 Medical record is reviewed Patient's alcohol level is 377. However, patient appears to be alert and oriented 4 at this time. Cranial nerves II through XII are intact. No evidence of focal neurologic deficits. Patient will be admitted for observation for alcohol intoxication and likely concussion. Patient is informed of results and questions answered Patient in no distress Procedures - Laceration Laceration #1 Consent Obtained: verbal consent Indication: laceration Site: scalp (Left retroauricular) Size (cm): 5 Description: linear Depth: simple, single layer Anesthetic Used: lidocaine 1%, with epi Anesthesia Technique: local infiltration Amount (mls): 3 Type of Sutures: nylon Size of Sutures: 5-0 Number of Sutures: 7 Technique: simple, interrupted Patient Tolerated Procedure: well, no complications Medical Decision Making - Medical Decision Making Patient with obvious head trauma presents with alcohol intoxication. General workup to include CT of the brain and cervical spine. We'll add on facial bones as the patient has injuries in this area. The case was discussed in detail with ED attending physician. Presentation, findings, treatment plan discussed in detail. Case was discussed in detail with the hospitalist physician, Dr. Zavala. It sounds admission for observation. Suture removal in 10 days - Lab Data Result diagrams: 10/23/21 00:10 10/23/21 00:10 Lab Results 10/23/21 10/23/2110/23/22 Range/Units 00:10 00:10 00:55 WBC 3.2 L (3.8-10.6) k/uL RBC 4.38 (4.30-5.90) m/uL Hgb 15.6 (13.0-17.5) gm/dL Hct 45.9 (39.0-53.0) % MCV 104.8 H (80.0-100.0) fL MCH 35.6 H (25.0-35.0) pg MCHC 34.0 (31.0-37.0) g/dL RDW 14.0 (11.5-15.5) % Plt Count 123 L (150-450) k/uL MPV 9.5 Neutrophils % 50 % Lymphocytes % 35 % Monocytes % 9 % Eosinophils % 1 % Basophils % 0 % Neutrophils # 1.6 (1.3-7.7) k/uL Lymphocytes # 1.1 (1.0-4.8) k/uL Monocytes # 0.3 (0-1.0) k/uL Eosinophils # 0.0 (0-0.7) k/uL Basophils # 0.0 (0-0.2) k/uL Macrocytosis Slight PT 10.9 (9.0-12.0) sec INR 1.0 (<1.2) APTT 23.1 (22.0-30.0) sec Sodium 138 (137-145) mmol/L Potassium 3.9 (3.5-5.1) mmol/L Chloride 101 (98-107) mmol/L Carbon Dioxide 22 (22-30) mmol/L Anion Gap 15 mmol/L BUN 13 (9-20) mg/dL Creatinine 0.66 (0.66-1.25) mg/dL Est GFR (CKD-EPI)AfAm >90 (>60 ml/min/1.73 sqM) Est GFR (CKD-EPI)NonAf >90 (>60 ml/min/1.73 sqM) Glucose 94 (74-99) mg/dL Calcium 8.9 (8.4-10.2) mg/dL Phosphorus 4.6 H (2.5-4.5) mg/dL Magnesium 1.5 L (1.6-2.3) mg/dL Total Bilirubin 1.0 (0.2-1.3) mg/dL AST 510 H (17-59) U/L ALT 181 H (4-49) U/L Alkaline Phosphatase 75 (38-126) U/L Total Protein 6.8 (6.3-8.2) g/dL Albumin 4.3 (3.5-5.0) g/dL Serum Alcohol 377 H* mg/dL Disposition Clinical Impression: Alcohol intoxication, Alcohol withdrawal seizure, Closed head injury, Scalp laceration, Facial contusion, Concussion with loss of consciousness Disposition: ADMITTED IP TO THIS HOSP Condition: Stable Time of Disposition: 01:51
[2021-10-22] MEDS ORDERED: LIDOCAINE 0.5%-EPI 1:200,000 50 ML VIAL SQ STA (23:42)
[2021-10-22] MEDS ORDERED: SODIUM CHLORIDE 0.9% 1,000 ML with THIAMINE 100 MG, FOLIC ACID 1 MG IV ONE ×3 (23:45)
--- NOTE | 2021-10-23 00:05 | CT ---
EXAMINATION TYPE: CT brain cspine wo con DATE OF EXAM: 10/22/2021 COMPARISON: 09/19/2021 HISTORY: fall CT DLP: 1307.8 mGycm Automated exposure control for dose reduction was used. Images of the brain and cervical spine obtained without contrast. Ventricles have normal size. There is no mass effect or midline shift. There is no sign of intracrani al hemorrhage. Cervical vertebra have normal alignment. There is degenerative disc space narrowing at C5-6 and C6-7 with spurring of the endplates. Facet joints are intact. Skull base is intact. There is normal aerati on of the mastoid sinuses. IMPRESSION: Negative unenhanced head CT scan. Minor degenerative disc changes in the lower cervical spine. No fracture. No significant change compared to the old exam.
--- NOTE | 2021-10-23 00:08 | CT ---
EXAMINATION TYPE: CT facial bones wo con DATE OF EXAM: 10/22/2021 COMPARISON: None HISTORY: FALL Pain CT DLP: 1307.8 mGycm Automated exposure control for dose reduction was used. Images obtained from the bottom of the mandible to the top of the frontal sinuses without contrast. Mandibular ring is intact. Temporomandibular joints are intact. Zygomatic arches appear normal. Nasal bone is intact. Orbital margins are intact. There is no evidence of orbital fracture. There is no re tro-orbital mass. The maxilla is intact. There is minor mucosal thickening in the maxillary sinuses. There is normal aeration of the mastoid sinuses. IMPRESSION: Mild maxillary sinusitis. No fracture seen.
[2021-10-23 00:31] LABS: Basophils % (A) 0 %; Eosinophils % (A) 1 %; HCT 45.9 % (39.0-53.0); HGB 15.6 gm/dL (13.0-17.5); Lymphocytes # (A) 1.1 k/uL (1.0-4.8); Lymphocytes % (A) 35 %; MCH 35.6 pg (25.0-35.0); MCV 104.8 fL (80.0-100.0); Macrocytosis Slight; Mean Platelet Volume 9.5; Monocytes # (A) 0.3 k/uL (0-1.0); Monocytes % (A) 9 %; Neutrophils # (A) 1.6 k/uL (1.3-7.7); Neutrophils % (A) 50 %; Platelet Count 123 k/uL (150-450); RBC 4.38 m/uL (4.30-5.90); WBC 3.2 k/uL (3.8-10.6)
[2021-10-23 00:38] LABS: ALT 181 U/L (4-49); AST 510 U/L (17-59); African American GFR (CKD) >90 (>60 ml/min/1.73 sqM); Albumin 4.3 g/dL (3.5-5.0); Alkaline Phosphatase 75 U/L (38-126); Anion Gap 15 mmol/L; Blood Urea Nitrogen 13 mg/dL (9-20); Calcium 8.9 mg/dL (8.4-10.2); Carbon Dioxide 22 mmol/L (22-30); Chloride 101 mmol/L (98-107); Glucose 94 mg/dL (74-99); Magnesium 1.5 mg/dL (1.6-2.3); Non-African American GFR(CKD) >90 (>60 ml/min/1.73 sqM); Phosphorus 4.6 mg/dL (2.5-4.5); Potassium 3.9 mmol/L (3.5-5.1); Sodium 138 mmol/L (137-145); Total Protein 6.8 g/dL (6.3-8.2)
[2021-10-23 01:27] LABS: Alcohol 377 mg/dL
[2021-10-23 01:29] LABS: Partial Thromboplastin Time 23.1 sec (22.0-30.0); Prothrombin Time 10.9 sec (9.0-12.0)
[2021-10-23] MEDS ORDERED: LORazepam 1 MG TAB PO STA (01:51)
[2021-10-23] MEDS ORDERED: ACETAMINOPHEN TAB 325 MG TAB PO PRN (01:57)
[2021-10-23] MEDS ORDERED: ONDANSETRON 4 MG/2 ML VIAL IVP PRN (01:57)
[2021-10-23] MEDS ORDERED: NALOXONE 0.4 MG/ML 1 ML VIAL IV PRN (01:57)
[2021-10-23] MEDS ORDERED: THIAMINE 100 MG/ML 2 ML VIAL IM STA (03:07)
[2021-10-23] MEDS ORDERED: LORazepam 2 MG/ML INJ IV PRN ×2 (03:07)
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
[2021-10-23 04:51] LABS: Appearance,Urine Clear (Clear); Bilirubin,Urine Negative (Negative); Blood,Urine Negative (Negative); Color,Urine Yellow; Glucose,Urine (UA) Negative (Negative); Ketones,Urine Negative (Negative); Leukocyte Esterase,Urine Negative (Negative); Nitrite,Urine Negative (Negative); Protein,Urine Negative (Negative); Specific Gravity,Urine 1.008 (1.001-1.035); Urobilinogen,Urine <2.0 mg/dL (<2.0)
[2021-10-23 05:09] LABS: Amphetamine Screen,Urine Not Detected (NotDetected); Barbiturate Screen,Urine Not Detected (NotDetected); Benzodiazepines Screen,Urine Detected (NotDetected); Cocaine Screen,Urine Not Detected (NotDetected); Methadone Screen, Urine Not Detected (NotDetected); Opiate Screen,Urine Not Detected (NotDetected); Oxycodone Screen, Urine Not Detected (NotDetected); Phencyclidine Screen,Urine Not Detected (NotDetected); Tricyclic Antidepressant,Urine Not Detected (NotDetected); Urn Cannabinoid Scrn Not Detected (NotDetected)
[2021-10-23] MEDS ORDERED: KETOROLAC 15 MG/ML 1 ML VIAL IVP STA (09:02)
--- NOTE | 2021-10-23 09:03 | XR ---
EXAMINATION TYPE: XR wrist complete RT DATE OF EXAM: 10/23/2021 COMPARISON: None available INDICATION: Fall TECHNIQUE: Standard 4 views of the right wrist FINDINGS: Tiny osteophytosis and degenerative changes of the first carpometacarpal articulation. 4 mm bone frag ment is seen at the radial aspect of the first carpometacarpal articulation, possibly degenerative or represents sequela of previous trauma, please correlate clinically. Slightly negative ulnar variance. Minimal cortical irregularity of the radial aspect of the distal sc aphoid which could be related to sequela of previous trauma, please correlate clinically. No definite acute fracture line identified otherwise. IMPRESSION: No definite acute fracture line identified with subtle findings as described above. Please correlate clinically. Further bone scan or CT scan assessment can be considered if clinically required.
[2021-10-23] MEDS: THIAMINE 100 MG TAB PO SCH ×2 (09:37→16:58)
[2021-10-23] MEDS: lisinopriL 20 MG TAB PO SCH (09:37)
[2021-10-23] MEDS: amLODIPine 5 MG TAB PO SCH (09:37)
[2021-10-23] MEDS: LORazepam 2 MG/ML INJ IV PRN ×2 (09:38→21:23)
--- NOTE | 2021-10-23 14:15 | P.DS ---
Providers Date of admission: 10/23/21 01:58 Expected date of discharge: 10/23/21 Attending physician: Matthew Zavala MD Primary care physician: Penelope Gonzalez MD Hospital Course: Discharge Diagnosis: [] Hospital Course: [] Patient seen and examined at bedside.[] Vital signs reviewed and stable. General: Nontoxic, no distress and appears stated age. Derm: Skin warm and dry, normal coloration for ethnicity. Head: Atraumatic, normocephalic and symmetric. Eyes: EOMs intact, no lid lag, and anicteric sclera Mouth: no lip lesions, mucus membranes moist Cardiovascular: regular rate and rhythm with normal S1S2, no murmur, positive posterior tibial pulses bilaterally, and cap refill < 2 seconds. Lungs: Respirations even, regular, and unlabored on room air. Lungs CTA bilaterally, no rhonchi, no rales, no wheezing, and no accessory muscle usage. Abdominal: soft, nontender to palpation, no guarding, no appreciable organomegaly Ext: ROM intact. No gross muscle atrophy, no edema, no contractures Neuro: Speech clear, face symmetrical and CN II-XII grossly intact with no noted focal neuro deficits Psych: Alert and oriented to person, place, time, and situation. Appropriate and pleasant affect. A total of 45 minutes of time were spent preparing this complex discharge summary. Patient Condition at Discharge: Stable Plan - Discharge Summary Discharge Rx Participant: No New Discharge Prescriptions: Continue amLODIPine [Norvasc] 5 mg PO DAILY Escitalopram [Lexapro] 20 mg PO DAILY Multivitamins, Thera [Multivitamin (formulary)] 1 tab PO DAILY #30 tablet Magnesium Oxide 400 mg PO AC-BID #60 tablet Ergocalciferol [Vitamin D2 (1250 Mcg = 20979 Iu)] 1,250 mcg PO Q7D lisinopriL 40 mg PO DAILY Folic Acid 1 mg PO DAILY #30 tablet Thiamine [Vitamin B-1] 100 mg PO BID #30 tablet Discharge Medication List Escitalopram [Lexapro] 20 mg PO DAILY 07/28/21 [History] amLODIPine [Norvasc] 5 mg PO DAILY 07/28/21 [History] lisinopriL 40 mg PO DAILY 07/28/21 [History] Folic Acid 1 mg PO DAILY #30 tablet 07/29/21 [Rx] Multivitamins, Thera [Multivitamin (formulary)] 1 tab PO DAILY #30 tablet 07/29/21 [Rx] Magnesium Oxide 400 mg PO AC-BID #60 tablet 09/20/21 [Rx] Thiamine [Vitamin B-1] 100 mg PO BID #30 tablet 09/20/21 [Rx] Ergocalciferol [Vitamin D2 (1250 Mcg = 03429 Iu)] 1,250 mcg PO Q7D 10/22/21 [History] Follow up Appointment(s)/Referral(s): Penelope Gonzalez MD [Primary Care Provider] - 1-2 days Lisandro Pettit PAC [PHYSICIAN WAREHOUSE PACKER] - 1 Week Patient Instructions/Handouts: Care For Your Stitches (DC), Concussion (DC), Abuse of Alcohol (DC) Activity/Diet/Wound Care/Special Instructions: Activity: As tolerated. Take breaks as needed. Diet: Heart healthy and carb consistent diet. Avoid salts, or foods with hidden salts such as canned or boxed foods and frozen dinners. Extra salt makes your heart work harder and traps the fluid in your body for longer. Special Instructions: Take all of your medications as directed and remember to keep all of your doctor's appointments and follow-up as needed. You will need to follow up with your PCP Dr. Gonzalez, or an urgent care center or return to the ER for removal of your stiches in 5-7 days. You will need to follow-up with advanced orthopedics next week for further evaluation of your wrist. Strongly encourage and advise you to stop drinking alcohol. You have been provided with information on outpatient community resources available to assist you on your journey towards sobriety. Thank you for allowing us to participate in your care, it was truly a pleasure having you for our patient!!! Discharge/Stand Alone Forms: AA Meetings [place] Resources Discharge Disposition: HOME SELF-CARE
--- NOTE | 2021-10-23 18:21 | P.PN ---
Subjective Progress Note Date: 10/23/21 Hospital course: Patient is a very pleasant 61-year-old male with a past medical history of hypertension and alcohol abuse. He presented to the emergency department overnight status post falling down stairs resulting in multiple injuries. In the emergency department, patient was found to have multiple injuries including a large laceration to temporal region behind left ear resulting in placement of 7 sutures. Patient with broken/missing teeth. CT head negative for acute intercranial process. CT cervical spine revealing minor degenerative disc changes in the lower cervical spine no acute fractures. CT face showing mild maxillary sinusitis negative for fractures or dislocation. X-ray right wrist revealing tiny osteophytosis and degenerative changes of the first metacarpal articulation and a 4 mm bone fragment seen at the radial aspect of the first carpometacarpal articulation possibly degenerative or represents sequela of previous trauma. Orders placed for wrist splint. Patient became clinically sober around 1 PM and discharge orders were initially placed, however at this time it was brought to my attention by patient's hospice nurse who presented to the facility petitioning patient for reports of threats of suicidal ideations with a means to carry them out. At this time discharge was canceled, patient was petitioned, placed in suicidal precautions and consult placed to psychiatry. Patient admits to drinking a minimum of a fifth of whiskey and montserrat ses it with beers daily. Physical exam: Vital signs reviewed and stable. General: Nontoxic, no distress and appears stated age. Derm: Skin warm and dry, normal coloration for ethnicity. Laceration to temporal region of head behind left ear, laceration is well approximated with [address] Head: Normocephalic and symmetric. Patient has hematoma to posterior Occipital region Eyes: EOMs intact, no lid lag, and anicteric sclera. Pupils equal round and reactive 3-1. Mouth: Patient has swollen upper and lower lips, patient has broken left front central incisor and missing his left lateral incisor Cardiovascular: regular rate and rhythm with normal S1S2, no murmur, positive posterior tibial pulses bilaterally, and cap refill < 2 seconds. Lungs: Respirations even, regular, and unlabored on room air. Lungs CTA bilaterally, no rhonchi, no rales, no wheezing, and no accessory muscle usage. Abdominal: soft, nontender to palpation, no guarding, no appreciable organomegaly Ext: ROM intact. No gross muscle atrophy, no edema, no contractures. Bruising on bilateral lower extremities worse right knee. Full range of motion intact patient denies any pain or discomfort upon movement or ambulation. Patient with swelling and bruising right hand and right wrist, reports pain with any movement or palpation. Neuro: Speech clear, face symmetrical and CN II-XII grossly intact with no noted focal neuro deficits Psych: Alert and oriented to person, place, time, and situation. Appropriate and pleasant affect. Assessment and Plan of Care: Alcohol intoxication pending withdrawal -Serum alcohol 377 -[facility] Protocol with symptom triggered medication management with benzodiazepines. -Banana bag 1 dose followed by continuous IV hydration. -Thiamine 100 mg twice a day -Multivitamin daily -Folate 1 mg daily -Seizure, fall, aspiration, and elopement precautions in place. -Urine drug screen positive for benzodiazepines -Continued close monitoring of electrolytes and replace as needed. -Telemetry monitoring. Hypomagnesemia -Replaced, continue to monitor with repeat a.m. labs. Elevated liver enzymes likely secondary to chronic alcohol abuse -AST 510 and ALT 181. Fall with head injury Concussion -Large laceration to temporal region behind left ear resulting in placement of 7 sutures. Wound care to be provided. -Patient with broken/missing teeth sustained from fall down steps. Patient will need to follow up outpatient with a dentist/oral surgeon upon discharge. -CT head negative for acute intercranial process. -CT cervical spine revealing minor degenerative disc changes in the lower cervical spine no acute fractures. -CT face showing mild maxillary sinusitis negative for fractures or dislocation. -X-ray right wrist revealing tiny osteophytosis and degenerative changes of the first metacarpal articulation and a 4 mm bone fragment seen at the radial aspect of the first carpometacarpal articulation possibly degenerative or represents sequela of previous trauma. Orders placed for wrist splint and discussed case with orthopedic surgery, patient to follow-up outpatient in office next week.. CODE STATUS: Full code DVT prophylaxis: Heparin Discussed with: Patient and RN Anticipated discharge date: Possibly tomorrow morning pending evaluation by psychiatry Anticipated discharge place: Clinical course to determine home versus inpatient psychiatric unit A total of 41 minutes was spent on the care of this complex patient more than 50% of the time was spent in counseling and care coordination. Eddie Murillo NP rendered care for this patient independently, reviewed the findings and plan as documented in the note above. I did not physically speak with or examine the patient on this date. Objective - Vital Signs Vital signs: Vital Signs Temp 98.0 F 10/23/21 08:00 Pulse 100 10/23/21 15:00 Resp 18 10/23/21 14:00 BP 138/77 10/23/21 15:00 Pulse Ox 93 L 10/23/21 15:00 Intake & Output 10/22/21 10/23/21 10/23/21 18:59 06:59 18:59 Intake Total 960 Output Total 200 Balance 760 Weight 124.738 kg 124.738 kg Intake: Oral 960 Output: Urine 200 Other: # Voids 2 - Labs CBC & Chem 7: 10/23/21 00:10 10/23/21 00:10 Labs: Abnormal Lab Results - Last 24 Hours (Table) 10/23/21 10/23/21 10/23/21 Range/Units 00:10 00:10 04:42 WBC 3.2 L (3.8-10.6) k/uL MCV 104.8 H (80.0-100.0) fL MCH 35.6 H (25.0-35.0) pg Plt Count 123 L (150-450) k/uL Phosphorus 4.6 H (2.5-4.5) mg/dL Magnesium 1.5 L (1.6-2.3) mg/dL AST 510 H (17-59) U/L ALT 181 H (4-49) U/L U Benzodiazepines Scrn Detected H (NotDetected) Serum Alcohol 377 H* mg/dL
[2021-10-23] MEDS: MAGNESIUM SULFATE-D5W PMX 1 GM in DEXTROSE/WATER 1 100ML.BAG IVPB SCH ×2 (19:09→21:22)
[2021-10-23] MEDS: HYDROmorphone 0.5 MG/0.5 ML SYRINGE IVP PRN (23:08)
[2021-10-24] MEDS: LORazepam 2 MG/ML INJ IV PRN ×4 (00:14→09:54)
[2021-10-24] MEDS: HEPARIN SODIUM,PORCINE/PF 5,000 UNIT/0.5 ML SYRINGE SQ SCH ×2 (02:43→07:42)
[2021-10-24] MEDS: HYDROmorphone 0.5 MG/0.5 ML SYRINGE IVP PRN ×2 (07:07→12:58)
[2021-10-24 07:37] VITALS: RESP 18; TEMP 98
[2021-10-24] MEDS: amLODIPine 5 MG TAB PO SCH (07:42)
[2021-10-24] MEDS: lisinopriL 20 MG TAB PO SCH (07:42)
[2021-10-24] MEDS: THIAMINE 100 MG TAB PO SCH (07:42)
[2021-10-24 14:20] VITALS: BP 150/87; PULSE 100
--- NOTE | 2021-10-24 14:40 | P.CN ---
Psychiatric Consult - . Consult date: 10/24/21 Consult:: 10/24/21 13:07 IDENTIFYING DATA: This patient is a 61-year-old male who currently lives with his and his mother in a house has 3 kids. REASON FOR REFERRAL: Psychiatry was consulted for suicidal ideations HISTORY OF PRESENT ILLNESS: The patient presented to the hospital initially after a fall at home and was feeling confused. Patient was found to be intoxicated by alcohol. He apparently had a blood alcohol level of 377 on admission. His UDS positive for benzodiazepines. Liver function tests were elevated. Nurse claims that patient was regretful of being suicidal and coming in the hospital. Patient was seen at the bedside today and agreeable to speak to tech writer. He had a black eye under his left eye. He states that he had a bad fall down stairs and started swearing and has been feeling "very stressed out lately". He states that he has been having difficulty sitting through his mother who has Parkinson's disease and also his has severe physical limitations. He states that he would never hurt himself and reports God and his as protective factors. He states that he also has kids that help support him. He claims that he initially had minor withdrawal symptoms from alcohol however is not reporting any withdrawal symptoms at this time. He states his appetite and sleep have been fair. He is denying any depression or anxiety today. At this time patient denies any suicidal or homical ideations, intent or plan. Patient denies any auditory, visual hallucinations and denies any paranoia or delusions. Patients admits to using alcohol in binge drinking episodes. He denies any other recreational drug use or cigarette use. PAST PSYCHIATRIC HISTORY: Patient has a a history of anxiety. He claims that he is on Lexapro 20 mg daily. He is being prescribed this by his primary care physician. Patient denies any previous psychiatric hospitalizations. Patient denies any history of suicide attempts in the past. Past Medical History: Hypertension, Osteoarthritis (OA) Additional Past Medical History / Comment(s): Pt states bitten by brown recluse spider/necrotizing fascitis/ L lower leg/with extended hospitalization, benign colon polyps removed, arthritis bilateral knees/chronic bilateral knee pain. ALLERGIES: as per EMR. CHEMICAL DEPENDENCY HISTORY: as per HPI. FAMILY PSYCHIATRIC/SUBSTANCE USE HISTORY: denies SOCIAL HISTORY: Patient was born and raised in [facility]. He states that he completed some college. 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 He is currently unemployed. He denies any legal history. He has 3 kids. He lives with his and his mother in a house. MENTAL STATUS EXAM: General Appearance: Patient appears to be tall, overweight, stated age is alert, directable, and cooperative. Patient appears to have fair hygiene and grooming wearing hospital gown with fair eye contact. He has a black eye under his left eye. Behavior: Patient is calmly lying in bed without any agitated behavior. Speech: Patient's speech is fluent and nonpressured. Mood/Affect: Patient reports their mood is "ok", affect is congruent Suicidality/Homicidality: Patient denies having any suicidal or homicidal ideation intent or plan. Perceptions: Patient denies any visual hallucinations and denies any auditory hallucinations Though content/process: There is no evidence of any delusional thought content and thought process is linear and goal-directed. Future oriented. Memory and concentration: AOX3, grossly intact for the purposes of this session. Can spell "WORLD" backwards Judgment and insight: Improving IMPRESSIONS: Depressive disorder unspecified, likely secondary to alcohol use Alcohol use disorder PLAN: -At this time patient DOES NOT meet criteria for inpatient psychiatric admission. -Would recommend the following medication changes/additions: Can continue with current psychiatric medications. Patient is not interested in cravings medication for alcohol. -CIWA protocol with PRN Ativan for alcohol withdrawal. Continue to monitor vital signs. -Can discontinue 1:1 sitter at this time as patient is not currently an imminent threat to themselves -composite layup worker to provide patient with outpatient mental health/psychiatry [facility] for appropriate follow up upon discharge -Spinning Lathe Operator Automatic spoke with patient about substance abuse and the harmful effects on medical and mental health, patient verbally understood and agreed. -composite layup worker to provide patient substance use treatment resources including AA/NA meetings in the community. -composite layup worker to provide patient with access line number to call for inpatient substance rehab -Communicated plan to patient's nurse -Psychiatry will sign off at this time -Please contact with any questions. 10/24/21 14:31
--- NOTE | 2021-10-24 14:48 | P.DS ---
Providers Date of admission: 10/23/21 01:58 Expected date of discharge: 10/24/21 Attending physician: Matthew Zavala MD Consults: 10/23/21 15:12 Consult Physician Urgent Consulting Provider: Star Barksdale Consult Reason/Comments: suicidal ideations Do you want consulting provider notified?: Yes Primary care physician: Penelope Gonzalez MD Hospital Course: Alcohol intoxication pending withdrawal Hypomagnesemia Elevated liver enzymes likely secondary to chronic alcohol abuse Fall with head injury Concussion Large laceration to temporal region Patient is a very pleasant 61-year-old male with a past medical history of hypertension and alcohol abuse. He presented to the emergency department overnight status post falling down stairs resulting in multiple injuries. In the emergency department, patient was found to have multiple injuries including a large laceration to temporal region behind left ear resulting in placement of 7 sutures. Patient with broken/missing teeth. CT head negative for acute intercranial process. CT cervical spine revealing minor degenerative disc changes in the lower cervical spine no acute fractures. CT face showing mild maxillary sinusitis negative for fractures or dislocation. X-ray right wrist revealing tiny osteophytosis and degenerative changes of the first metacarpal articulation and a 4 mm bone fragment seen at the radial aspect of the first carpometacarpal articulation possibly degenerative or represents sequela of previous trauma. Orders placed for wrist splint. Patient became clinically sober around 1 PM and discharge orders were initially placed, however patient's presented to the facility petitioning patient for reports of threats of suicidal ideations with a means to carry them out. Patient was petitioned, placed in suicidal precautions and consult placed to psychiatry. Today, psychiatry saw the patient and cleared him for discharge. Recommendations made for therapy going forward as well as substance abuse cessation. Gen: awake, alert HEENT: normocephalic, atraumatic, good hearing acuity, moist mucous membranes Resp: good air exchange, breathing comfortably with no accessory muscle use CVS: good distal perfusion x 4, GI: soft, NTTP, ND : no SPT, no CVAT, suarez catheter not present MSK: no pitting edema, no clubbing Neuro: non-focal, moving all extremities Psych: cooperative, euthymic mood Patient Condition at Discharge: Good Plan - Discharge Summary Discharge Rx Participant: No New Discharge Prescriptions: Continue amLODIPine [Norvasc] 5 mg PO DAILY Escitalopram [Lexapro] 20 mg PO DAILY Multivitamins, Thera [Multivitamin (formulary)] 1 tab PO DAILY #30 tablet Magnesium Oxide 400 mg PO AC-BID #60 tablet Ergocalciferol [Vitamin D2 (1250 Mcg = 11295 Iu)] 1,250 mcg PO Q7D lisinopriL 40 mg PO DAILY Folic Acid 1 mg PO DAILY #30 tablet Thiamine [Vitamin B-1] 100 mg PO BID #30 tablet Discharge Medication List Escitalopram [Lexapro] 20 mg PO DAILY 07/28/21 [History] amLODIPine [Norvasc] 5 mg PO DAILY 07/28/21 [History] lisinopriL 40 mg PO DAILY 07/28/21 [History] Folic Acid 1 mg PO DAILY #30 tablet 07/29/21 [Rx] Multivitamins, Thera [Multivitamin (formulary)] 1 tab PO DAILY #30 tablet 07/29/21 [Rx] Magnesium Oxide 400 mg PO AC-BID #60 tablet 09/20/21 [Rx] Thiamine [Vitamin B-1] 100 mg PO BID #30 tablet 09/20/21 [Rx] Ergocalciferol [Vitamin D2 (1250 Mcg = 28271 Iu)] 1,250 mcg PO Q7D 10/22/21 [History] Follow up Appointment(s)/Referral(s): Penelope Gonzalez MD [Primary Care Provider] - 1-2 days Lisandro Pettit PAC [PHYSICIAN DISC PAD KNOCKOUT WORKER] - 1 Week Angeli Vann [NON-STAFF] - As Needed (Supplier of right wrist splint.) Patient Instructions/Handouts: Care For Your Stitches (DC), Concussion (DC), Abuse of Alcohol (DC) Activity/Diet/Wound Care/Special Instructions: Activity: As tolerated. Take breaks as needed. Diet: Heart healthy and carb consistent diet. Avoid salts, or foods with hidden salts such as canned or boxed foods and frozen dinners. Extra salt makes your heart work harder and traps the fluid in your body for longer. Special Instructions: Take all of your medications as directed and remember to keep all of your doctor's appointments and follow-up as needed. You will need to follow up with your PCP Dr. Gonzalez, or an urgent care center or return to the ER for removal of your stiches in 5-7 days. You will need to follow-up with [facility] next week for further evaluation of your wrist, pending follow-up and further evaluation please wear wrist splint at all times. May remove only for bathing. Strongly encourage and advise you to stop drinking alcohol. You have been provided with information on outpatient community resources available to assist you on your journey towards sobriety. Thank you for allowing us to participate in your care, it was truly a pleasure having you for our patient!!! Discharge/Stand Alone Forms: AA Meetings [facility] Discharge Disposition: HOME SELF-CARE
== END 2021-10-24 15:33 | disposition home or self-care (01) ==
LOC: EC 22:22 → 6NMEDSUR 10-23 01:58 → UNDODISOB 10-23 16:17 → 4SSUR 10-23 18:29
PROVIDERS: ADMIT Internal Medicine; ATTEND Internal Medicine
DX: S06.0X9A Concussion with loss of consciousness of unspecified duration, initial encounter (principal); F10.221 Alcohol dependence with intoxication delirium; S01.01XA Laceration without foreign body of scalp, initial encounter; S00.12XA Contusion of left eyelid and periocular area, initial encounter; S00.511A Abrasion of lip, initial encounter; S60.221A Contusion of right hand, initial encounter; Y90.8 Blood alcohol level of 240 mg/100 ml or more; I10 Essential (primary) hypertension; G89.29 Other chronic pain; Z87.828 Personal history of other (healed) physical injury and trauma; M17.0 Bilateral primary osteoarthritis of knee; F10.239 Alcohol dependence with withdrawal, unspecified; R56.9 Unspecified convulsions; J32.0 Chronic maxillary sinusitis; R74.8 Abnormal levels of other serum enzymes; F41.9 Anxiety disorder, unspecified; M50.322 Other cervical disc degeneration at C5-C6 level; E83.42 Hypomagnesemia; R45.851 Suicidal ideations; E66.3 Overweight; Z68.37 Body mass index [BMI] 37.0-37.9, adult; Z79.899 Other long term (current) drug therapy; Z88.5 Allergy status to narcotic agent; Z86.010 Personal history of colon polyps; Z56.0 Unemployment, unspecified; Z87.891 Personal history of nicotine dependence; Z98.890 Other specified postprocedural states; Z71.41 Alcohol abuse counseling and surveillance of alcoholic; W10.9XXA Fall (on) (from) unspecified stairs and steps, initial encounter; Y92.009 Unspecified place in unspecified non-institutional (private) residence as the place of occurrence of the external cause; Z82.0 Family history of epilepsy and other diseases of the nervous system; Z80.0 Family history of malignant neoplasm of digestive organs
CPT/HCPCS: 96376 ×2; 96372 ×2; 96375 ×2; 12002; 82075; 96365; 96366; 96367; 99285; 36415; 80053; 83735; 84100; 85025; 85610; 85730; 81003; 80306; 80320; 73110; 72125; 70486; 70450; G0378 ×3; J2060 ×2; J3411; J3475; J1885; J1170 ×2; J1644

== ENCOUNTER 2022-06-11 18:23 | Emergency (ER) | payer BC, OTHER ==
[2022-06-11 18:42] VITALS: TEMP 98
--- NOTE | 2022-06-11 19:39 | ED ---
General Adult HPI - General Source: patient, family Mode of arrival: ambulatory Limitations: no limitations <BebetoRoseloni Ayala - Last Filed: 06/11/22 20:49> <Chandu Byrd - Last Filed: 06/11/22 22:33> - General Chief complaint: Alcohol Stated complaint: ETOH Time Seen by Provider: 06/11/22 19:14 - History of Present Illness Initial comments: Dictation was produced using [employer] dictation software. please excuse any grammatical, word or spelling errors. 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 Patient allegedly has suffered frequent falls. Yesterday he was delivered the bad news of his passing away. Since then he has been drinking heavily. Patient does not usually drink alcohol. Patient states that he fell 2 separate occasions over the last 24-36 hours. States that he fell on the stairs. Patient unable to clearly tell me what exactly he fell. States he split open when his upper lip. Patient reports that he is very upset about his passing away. Patient denies any significant comorbidities. He was prescribed Xanax yesterday as well. The ROS documented in this emergency department record has been reviewed and confirmed by me. Those systems with pertinent positive or negative responses have been documented in the HPI. All other systems are other negative and/or noncontributory. PHYSICAL EXAM: General Impression: Alert and oriented x3, not in acute distress, inebriated, malodorous HEENT: Normocephalic atraumatic, extra-ocular movements intact, pupils equal and reactive to light bilaterally, mucous membranes moist, old appearing upper lip laceration without any active bleeding it is vertical to the midline upper lip, superficial abrasions to the forehead Cardiovascular: Heart regular rate and rhythm Chest: Able to complete full sentences, no retractions, no tachypnea Abdomen: abdomen soft, non-tender, non-distended, no organomegaly Musculoskeletal: Pulses present and equal in all extremities, no peripheral edema Motor: no focal deficits noted Neurological: CN II-XII grossly intact, no focal motor or sensory deficits noted Skin: Intact with no visualized rashes Psych: Normal affect and mood ED course: 61-year-old male presents emergency department for alcohol in toxication, recent falls and upper lip laceration of unknown age. Vital signs upon arrival are within acceptable limits. Laceration appears old. At this point patient's lip laceration is high risk for closure given the appearance and concerned that laceration appears older than 24 hours. Patient care is signed out to Dr. Byrd had o'clock p.m. for follow-up of pending labs and imaging studies. (Fadi Tate) - Related Data Home Medications Medication Instructions Recorded Confirmed Escitalopram [Lexapro] 20 mg PO DAILY 07/28/21 10/22/21 amLODIPine [Norvasc] 5 mg PO DAILY 07/28/21 10/22/21 lisinopriL 40 mg PO DAILY 07/28/21 10/22/21 Ergocalciferol [Vitamin D2 (1250 1,250 mcg PO Q7D 10/22/21 10/22/21 Mcg = 99270 Iu)] Previous Rx's Medication Instructions Recorded Folic Acid 1 mg PO DAILY #30 tablet 07/29/21 Multivitamins, Thera [Multivitamin 1 tab PO DAILY #30 tablet 07/29/21 (formulary)] Magnesium Oxide 400 mg PO AC-BID #60 tablet 09/20/21 Thiamine [Vitamin B-1] 100 mg PO BID #30 tablet 09/20/21 Amoxic-Pot Clav 875-125Mg 1 tab PO Q12HR 1 Days #14 tab 06/11/22 [Augmentin 875-125] Allergies Allergy/AdvReac Type Severity Reaction Status Date / Time morphine AdvReac Nausea & Verified 06/11/22 18:42 Vomiting Review of Systems ROS Other: All systems not noted in ROS Statement are negative. <Fadi Tate - Last Filed: 06/11/22 20:49> ROS Other: All systems not noted in ROS Statement are negative. <Chandu Byrd - Last Filed: 06/11/22 22:33> ROS Statement: Those systems with pertinent positive or pertinent negative responses have been documented in the HPI. Past Medical History Past Medical History: Chest Pain / Angina, Hypertension, Osteoarthritis (OA) Additional Past Medical History / Comment(s): Pt recently admitted to [facility] on 09/19/21 with ETOH abuse/recurrent falls/R hip contusion?hypomagnesemia/low Vitamin D. Other hx: Pt states bitten by brown maria del carmenlu spider/necrotizing fascitis/ L lower leg/with extended hospitalization, benign colon polyps removed, arthritis bilateral knees/chronic bilateral knee pain. History of Any Multi-Drug Resistant Organisms: None Reported Past Surgical History: Heart Catheterization, Hernia Repair Additional Past Surgical History / Comment(s): cardiac cath 01/20, umbilical hernia repair with mesh, L inguinal hernia repair. Past Anesthesia/Blood Transfusion Reactions: No Reported Reaction Past Psychological History: Anxiety Smoking Status: Former smoker Past Alcohol Use History: Occasional Past Drug Use History: None Reported - Past Family History Father Family Medical History: Cancer Additional Family Medical History / Comment(s): Father of colorectal cancer Brother(s) Family Medical History: Cancer Additional Family Medical History / Comment(s): Brother survived colorectal cancer. Mother Family Medical History: No Reported History Additional Family Medical History / Comment(s): Mother was healthy. <Fadi Tate - Last Filed: 06/11/22 20:49> General Exam Limitations: no limitations <Fadi Tate - Last Filed: 06/11/22 20:49> Course Vital Signs 06/11/22 18:40 Temperature 98 F Pulse Rate 107 H Respiratory 22 Rate Blood Pressure 120/65 O2 Sat by Pulse 94 L Oximetry Medical Decision Making - Lab Data Result diagrams: 06/11/22 20:26 06/11/22 20:26 <Chandu Byrd - Last Filed: 06/11/22 22:33> - Medical Decision Making Patient is 61-year-old man signed out to me pending results of her labs and imaging studies. These have returned and the patient is requesting discharge. He does have an associate who would like to drive him home. Discussed suture repair of the patient's lip but he is already outside of the recommended window for primary closure and the patient does not want the laceration addressed at all. (Chandu Byrd) - Lab Data Lab Results 06/11/22 06/11/22 06/11/22 Range/Units 20:26 20:26 20:26 WBC 2.7 L (3.8-10.6) k/uL RBC 4.53 (4.30-5.90) m/uL Hgb 15.2 (13.0-17.5) gm/dL Hct 43.7 (39.0-53.0) % MCV 96.4 (80.0-100.0) fL MCH 33.5 (25.0-35.0) pg MCHC 34.7 (31.0-37.0) g/dL RDW 15.9 H (11.5-15.5) % Plt Count 102 L (150-450) k/uL MPV 9.6 Neutrophils % 55 % Lymphocytes % 37 % Monocytes % 4 % Eosinophils % 2 % Basophils % 1 % Neutrophils # 1.5 (1.3-7.7) k/uL Lymphocytes # 1.0 (1.0-4.8) k/uL Monocytes # 0.1 (0-1.0) k/uL Eosinophils # 0.1 (0-0.7) k/uL Basophils # 0.0 (0-0.2) k/uL PT 10.5 (9.0-12.0) sec INR 1.0 (<1.2) APTT 23.7 (22.0-30.0) sec Sodium 141 (137-145) mmol/L Potassium 3.9 (3.5-5.1) mmol/L Chloride 97 L (98-107) mmol/L Carbon Dioxide 24 (22-30) mmol/L Anion Gap 20 mmol/L BUN 8 L (9-20) mg/dL Creatinine 0.59 L (0.66-1.25) mg/dL Est GFR (CKD-EPI)AfAm >90 (>60 ml/min/1.73 sqM) Est GFR (CKD-EPI)NonAf >90 (>60 ml/min/1.73 sqM) Glucose 89 (74-99) mg/dL Osmolality 365 H* (280-301) mosm/kg Plasma Lactic Acid Lenin (0.7-2.0) mmol/L Calcium 8.8 (8.4-10.2) mg/dL Magnesium 1.1 L (1.6-2.3) mg/dL Total Bilirubin 1.4 H (0.2-1.3) mg/dL AST 402 H (17-59) U/L ALT 70 H (4-49) U/L Alkaline Phosphatase 119 (38-126) U/L Troponin I (0.000-0.034) ng/mL Total Protein 7.0 (6.3-8.2) g/dL Albumin 4.5 (3.5-5.0) g/dL Salicylates <1.0 mg/dL Acetaminophen <10.0 ug/mL Serum Alcohol 286 H* mg/dL 06/11/22 06/11/22 Range/Units 20:26 20:26 WBC (3.8-10.6) k/uL RBC (4.30-5.90) m/uL Hgb (13.0-17.5) gm/dL Hct (39.0-53.0) % MCV (80.0-100.0) fL MCH (25.0-35.0) pg MCHC (31.0-37.0) g/dL RDW (11.5-15.5) % Plt Count (150-450) k/uL MPV Neutrophils % % Lymphocytes % % Monocytes % % Eosinophils % % Basophils % % Neutrophils # (1.3-7.7) k/uL Lymphocytes # (1.0-4.8) k/uL Monocytes # (0-1.0) k/uL Eosinophils # (0-0.7) k/uL Basophils # (0-0.2) k/uL PT (9.0-12.0) sec INR (<1.2) APTT (22.0-30.0) sec Sodium (137-145) mmol/L Potassium (3.5-5.1) mmol/L Chloride (98-107) mmol/L Carbon Dioxide (22-30) mmol/L Anion Gap mmol/L BUN (9-20) mg/dL Creatinine (0.66-1.25) mg/dL Est GFR (CKD-EPI)AfAm (>60 ml/min/1.73 sqM) Est GFR (CKD-EPI)NonAf (>60 ml/min/1.73 sqM) Glucose (74-99) mg/dL Osmolality (280-301) mosm/kg Plasma Lactic Acid Lenin 3.0 H* (0.7-2.0) mmol/L Calcium (8.4-10.2) mg/dL Magnesium (1.6-2.3) mg/dL Total Bilirubin (0.2-1.3) mg/dL AST (17-59) U/L ALT (4-49) U/L Alkaline Phosphatase (38-126) U/L Troponin I <0.012 (0.000-0.034) ng/mL Total Protein (6.3-8.2) g/dL Albumin (3.5-5.0) g/dL Salicylates mg/dL Acetaminophen ug/mL Serum Alcohol mg/dL Disposition <Fadi Tate - Last Filed: 06/11/22 20:49> Is patient prescribed a controlled substance at d/c from ED?: No <Chandu Byrd - Last Filed: 06/11/22 22:33> Clinical Impression: Alcohol intoxication, Lip laceration Disposition: HOME SELF-CARE Instructions (If sedation given, give patient instructions): Laceration (DC) Additional Instructions: He must follow-up with your physician to have an ultrasound of your thyroid gland Prescriptions: Amoxic-Pot Clav 875-125Mg [Augmentin 875-125] 1 tab PO Q12HR 1 Days #14 tab Referrals: Penelope Gonzalez MD [Primary Care Provider] - 1-2 days
[2022-06-11] MEDS ORDERED: DIPH,PERTUS(ACELL)TETVAC-LF 0.5 ML VIAL IM ONE (19:40)
[2022-06-11 20:57] LABS: Basophils % (A) 1 %; Eosinophils # (A) 0.1 k/uL (0-0.7); Eosinophils % (A) 2 %; HCT 43.7 % (39.0-53.0); HGB 15.2 gm/dL (13.0-17.5); Lymphocytes % (A) 37 %; MCH 33.5 pg (25.0-35.0); MCHC 34.7 g/dL (31.0-37.0); MCV 96.4 fL (80.0-100.0); Mean Platelet Volume 9.6; Monocytes # (A) 0.1 k/uL (0-1.0); Monocytes % (A) 4 %; Neutrophils # (A) 1.5 k/uL (1.3-7.7); Neutrophils % (A) 55 %; Platelet Count 102 k/uL (150-450); RBC 4.53 m/uL (4.30-5.90); RDW 15.9 % (11.5-15.5); WBC 2.7 k/uL (3.8-10.6)
[2022-06-11 21:07] LABS: Partial Thromboplastin Time 23.7 sec (22.0-30.0); Prothrombin Time 10.5 sec (9.0-12.0)
[2022-06-11 21:21] LABS: ALT 70 U/L (4-49); AST 402 U/L (17-59); Acetaminophen <10.0 ug/mL; African American GFR (CKD) >90 (>60 ml/min/1.73 sqM); Albumin 4.5 g/dL (3.5-5.0); Alkaline Phosphatase 119 U/L (38-126); Anion Gap 20 mmol/L; Blood Urea Nitrogen 8 mg/dL (9-20); Calcium 8.8 mg/dL (8.4-10.2); Carbon Dioxide 24 mmol/L (22-30); Chloride 97 mmol/L (98-107); Glucose 89 mg/dL (74-99); Magnesium 1.1 mg/dL (1.6-2.3); Non-African American GFR(CKD) >90 (>60 ml/min/1.73 sqM); Potassium 3.9 mmol/L (3.5-5.1); Salicylate <1.0 mg/dL; Sodium 141 mmol/L (137-145); Total Bilirubin 1.4 mg/dL (0.2-1.3)
[2022-06-11 21:32] LABS: Alcohol 286 mg/dL
[2022-06-11] MEDS ORDERED: SODIUM CHLORIDE 0.9% 1,000 ML IV ONE (21:54)
--- NOTE | 2022-06-11 21:54 | CT ---
EXAMINATION TYPE: CT facial bones wo con DATE OF EXAM: 06/11/2022 COMPARISON: 10/23/2019 HISTORY: 61 M; pt fell down stairs and hit head. CT DLP: 1336.5 mGycm. Automated Exposure Control for Dose Reduction was Utilized. TECHNIQUE: Departmental protocol. FINDINGS: The orbits are intact. The facial skeleton is negative for fracture or malalignment. No incidental findings. IMPRESSION: No acute process.
--- NOTE | 2022-06-11 22:03 | CT ---
EXAMINATION TYPE: CT brain cspine wo con DATE OF EXAM: 06/11/2022 COMPARISON: NONE HISTORY: pt fell down stairs and hit head. CT DLP: 1336.5 mGycm. Automated Exposure Control for Dose Reduction was Utilized. TECHNIQUE: CT scan of the head and cervical spine are performed without contrast. FINDINGS: There is no acute intracranial hemorrhage, mass effect, or midline shift identified. The ventricles and sulci are within normal limits in size. The globes are intact and the visualized sin uses are clear. Cervical spine is visualized in its entirety from C1 through upper thoracic levels and demonstrates s atisfactory alignment without evidence of acute fracture or dislocation. Prevertebral soft tissue ap pears within normal limits. The C1-C2 articulation is unremarkable. IMPRESSION: 1. There is no acute fracture or dislocation evident in the cervical spine. 2. No acute intracranial hemorrhage, mass effect, or midline shift is seen. 3. Incidental: Enlarged right thyroid with multiple nodules, can be further assessed with ultrasound .
[2022-06-11 22:39] VITALS: BP 129/68; PULSE 71; RESP 15
== END 2022-06-11 22:40 | disposition home or self-care (01) ==
LOC: EC 18:23
DX: S01.511A Laceration without foreign body of lip, initial encounter (principal); F10.929 Alcohol use, unspecified with intoxication, unspecified; I10 Essential (primary) hypertension; M19.90 Unspecified osteoarthritis, unspecified site; Z87.891 Personal history of nicotine dependence; Z88.6 Allergy status to analgesic agent; Z23 Encounter for immunization; X58.XXXA Exposure to other specified factors, initial encounter
CPT/HCPCS: 36415; 83930; 80053; 83605; 83735; 84484; 85025; 85610; 85730; 80143; 80179; 72125; 70486; 70450; 90715; 99285; 90471; G0480; 80320